=== PATIENT | female | born 1950 | race African-American/Black ===

== ENCOUNTER 2019-08-07 17:01 | Inpatient (IN) ==
[2019-08-07] MEDS ORDERED: NS 1,000 ML IV ONE (18:19)
[2019-08-07] MEDS ORDERED: ZOFRAN IV ONE (18:19)
[2019-08-07] MEDS ORDERED: FENTANYL IV ONE (18:19)
[2019-08-07] MEDS ORDERED: PEPCID IV ONE (18:20)
[2019-08-07] MEDS ORDERED: SODIUM CHLORIDE 0.9% INJ ONE (18:20)
--- NOTE | 2019-08-07 18:39 | PROVIDER DOCUMENTATION ---
This chart was entered by Christopher Cast Scribjose, acting as scribe for Varghese Altamirano MD. HPI-Abdominal Pain/GI Problem - General Source: patient, family <Robin Gonzalez - Last Filed: 08/07/19 21:51> - General Source: patient, family - History of Present Illness-ABD Nature of Presenting Problems: 69 yof presents to the ed with c/o abdominal pains, N/V. pt states 2 prior vists tp the ed this week Thursday and Thursday , then pt went to see pcp. family states " shes been diagnosed with viral infection each visits this week." family states pt having scans ( abdominal x-ray and CT) ,blood work and being flu tested. family states pt " not being able to keep down medications for liquids or food." pt states " abdominal pain comes and goes , but more often comes now." pt states " when i have body chills my abdominal pain is worse." pt states sore throat as well. pt states having abdominal pains for several mins in waiting room of the ed. family states pt having kidney stone removal in October and also a hip replacement. Abdominal Pain Onset Location: reports: RLQ Pain Radiation: reports: no radiation Quality of Pain: reports: aching Onset/Duration: reports: 1 week ago Timing: reports: still present Activities at Onset: reports: none Modifying Factors: improves with: other (pt states " body gets chills makes abdominal pains worse) Associated Symptoms: reports: fever/chills (chills stated by pt), loss of appetite, nausea, vomiting. denies: back/neck pain, chest pain, diarrhea, shortness of breath Last BM: 4 days ago Dark Stools Present?: reports: none noticed Rectal Bleeding: reports: none Rectal Pain: reports: none Emesis Description: reports: none Bruising or Bleeding Gums?: No Similar Symptoms Previously?: No Recently seen or treated by another doctor?: Yes (2 prior vists to the ed this week , and at pcp ) <Varghese Altamirano - Last Filed: 08/07/19 21:58> - General Chief Complaint: Abdominal Pain Stated Complaint: ABD PAIN,LEG PAIN Time Seen by Provider: 08/07/19 18:16 Allergies/Adverse Reactions: Patient Allergies Allergy/AdvReac Type Severity Reaction Status Date / Time tamsulosin [From Flomax] Allergy SHORTNESS Verified 08/07/19 18:57 OF BREATH tizanidine Allergy RASH Verified 08/07/19 18:57 Home Medications: Home Medication List Medication Instructions Recorded Confirmed Last Taken Type Levothyroxine [Synthroid] 75 microgm PO DAILY 09/12/14 08/07/19 08/07/19 History Gabapentin [Neurontin] 800 mg PO TID PRN 06/22/15 08/07/19 08/07/19 History Dicyclomine [Bentyl] 20 mg PO TID AC #15 cap 08/05/19 08/07/19 Unknown Rx Promethazine [Phenergan] 25 mg PO Q6H PRN PRN #20 tab 08/05/19 Unknown Rx ATORVAstatin [Lipitor] 1 tab PO DAILY 08/07/19 08/07/19 08/07/19 History Prednisolone 1 drp OPH TID 08/07/19 08/07/19 08/07/19 History Review of Systems - Adult - REVIEW OF SYSTEMS - ADULT Constitutional: reports: see HPI, chills. denies: fever, night sweats Eyes: reports: no symptoms reported Ears, Nose, Mouth & Throat: reports: see HPI, throat pain. denies: ear pain, nose pain, hoarseness Cardiovascular: reports: no symptoms reported Respiratory: denies: shortness of breath, wheezing Gastrointestinal: reports: see HPI, abdominal pain, nausea, vomiting. denies: constipation, diarrhea Genitourinary: reports: no symptoms reported Musculoskeletal: denies: back pain, neck pain Integumentary: reports: no symptoms reported Neurological: reports: no symptoms reported Psychiatric: reports: no symptoms reported Endocrine: reports: no symptoms reported Hematologic/Lymphatic: reports: no symptoms reported Allergic/Immunologic: reports: no symptoms reported All Other Systems: Reviewed and Negative <Varghese Altamirano - Last Filed: 08/07/19 21:58> Past History - Adult - PAST MEDICAL HISTORY-ADULT Review of Records: reports: Old Records Reviewed, Nursing Assessment Review, Medications Reviewed, Social history reviewed & non-contributory. Major Childhood Illnesses: reports: denies history Cardiovascular: reports: hyperlipidemia Respiratory: reports: denies history Gastrointestinal: reports: denies history Obstetrical/Gynecological: reports: denies history Genitourinary: reports: denies history Musculoskeletal: reports: other (neuropathy) Neurological: reports: denies history Psychiatric: reports: denies history Endocrine/Immune: reports: thyroid disorder. denies: Diabetes Other Conditions: reports: denies history Additional History: Peripheral Neuropathy - PRIOR SURGERIES/PROCEDURES Surgical/Procedure History: reports: other (thyroidectomy, kidney stone removal) - PRIOR HOSPITALIZATIONS Prior Hospitalizations: reports: none - IMMUNIZATION STATUS Childhood Immunizations: See Nurse Assessment Flu Vaccine: See Nurse Assessment - FAMILY HISTORY Family History: reviewed, not pertinent - SOCIAL HISTORY Smoking: cigarettes, less than 1 pack/day Provider spent 3-5 mins advising pt. on dangers of tobacco.: Discussed manners to quit use, and f/u contacts for add'l counseling. Substance Use: denies <Varghese Altamirano - Last Filed: 08/07/19 21:58> Physical Exam-General - PHYSICAL EXAM-ADULT Initial Vital Signs Reviewed: Yes - CONSTITUTIONAL General Appearance: appears well, alert, other (pt on exam is ill in appearance, moaning and dehydrated) - HEAD, EARS, NOSE, MOUTH & THROAT HENMT: normal ENT inspection, TMs normal. negative: moist mucous membranes - RESPIRATORY Respiratory: chest non-tender, lungs clear, normal breath sounds - CARDIOVASCULAR Cardiovascular: normal peripheral pulses, regular rate, rhythm - CHEST (BREASTS) Chest/Breast: deferred - GASTROINTESTINAL (ABDOMEN) Abdominal Exam: abnormal bowel sounds (on exam bowel sounds are hypoactive) - GENITOURINARY Female Genitalia/Pelvic Exam: deferred Rectal Exam: deferred Hemoccult Exam: deferred - MUSCULOSKELETAL Extremity: normal inspection, no pedal edema - SKIN Integumentary: negative: normal turgor - NEUROLOGIC Neurologic: grossly normal, no motor/sensory deficits - PSYCHIATRIC Psych/Mental Status: normal mood/affect, normal thought content, normal thought process, oriented x 3 <Varghese Altamirano - Last Filed: 08/07/19 21:58> Progress - PLAN OF CARE/RESULTS Progress/Plan/Lab Results: Vital Signs - 8 hr 08/07/19 17:13 08/07/19 19:03 08/07/19 19:04 Temperature 99.1 F Pulse Rate 65 56 L Respiratory Rate 18 16 Blood Pressure 149/75 165/83 O2 Sat by Pulse Oximetry 97 99 99 08/07/19 19:28 08/07/19 19:31 08/07/19 20:23 Temperature Pulse Rate 56 L 55 L 68 Respiratory Rate 18 18 19 Blood Pressure 169/76 172/80 O2 Sat by Pulse Oximetry 97 98 08/07/19 20:30 08/07/19 20:32 08/07/19 20:45 Temperature Pulse Rate 65 63 63 Respiratory Rate 16 16 17 Blood Pressure 146/72 O2 Sat by Pulse Oximetry 99 98 99 08/07/19 19:06 Influenza Screen - Final Nasopharyngeal 08/07/19 19:26 Group A Strep Rapid Antigen - Final Throat Laboratory Results - last 24 hr 08/07/19 08/07/19 08/07/19 18:43 18:43 18:43 WBC 7.39 RBC 4.00 L Hgb 12.4 Hct 36.5 L MCV 91.3 MCH 31.0 MCHC 34.0 RDW Std Deviation 11.4 L Plt Count 204 MPV 10.8 H Immature Gran % (Auto) 0.3 Neut % (Auto) 68.9 Lymph % (Auto) 20.2 L Howard % (Auto) 9.9 H Eos % (Auto) 0.4 Baso % (Auto) 0.3 Immature Gran # (Auto) 0.02 Neut # (Auto) 5.10 Lymph # (Auto) 1.49 Howard # (Auto) 0.73 H Eos # (Auto) 0.03 Baso # (Auto) 0.02 PT INR PTT (Actin FS) Sodium 144 Potassium 3.7 Chloride 107 Carbon Dioxide 21 L Anion Gap 16 BUN 14 Creatinine 0.8 Estimated GFR/1.73 m2 > 60 BUN/Creatinine Ratio 18 Glucose 112 H Calculated Osmolality 288 Calcium 9.8 Total Bilirubin 1.07 H AST 38 H ALT 23 Alkaline Phosphatase 88 Troponin T [id number]-Lkrgpdybvzt Pept Total Protein 8.1 Albumin 4.2 Globulin 3.9 Albumin/Globulin Ratio 1.1 Lipase 27 Plasma Lactate 1.2 08/07/19 08/07/19 08/07/19 18:43 18:43 18:43 WBC RBC Hgb Hct MCV MCH MCHC RDW Std Deviation Plt Count MPV Immature Gran % (Auto) Neut % (Auto) Lymph % (Auto) Howard % (Auto) Eos % (Auto) Baso % (Auto) Immature Gran # (Auto) Neut # (Auto) Lymph # (Auto) Howard # (Auto) Eos # (Auto) Baso # (Auto) PT 13.0 INR 0.97 PTT (Actin FS) 27.9 Sodium Potassium Chloride Carbon Dioxide Anion Gap BUN Creatinine Estimated GFR/1.73 m2 BUN/Creatinine Ratio Glucose Calculated Osmolality Calcium Total Bilirubin AST ALT Alkaline Phosphatase Troponin T < 0.010 Vls-B-Xeyyyblfoje Pept 225 Total Protein Albumin Globulin Albumin/Globulin Ratio Lipase Plasma Lactate Orders Category Date Time Status Nursing- Obtain EKG once Care 08/07/19 18:18 Active NPO Diet 08/07/19 17:19 Active CHEST-PORTABLE [RAD] Stat Exams 08/07/19 18:18 Completed CTA [CT ANGIOGRAM ABDOMEN] [CT] Stat Exams 08/07/19 18:23 Completed BLOOD CULTURE [BLDCUL] Stat Lab 08/07/19 18:43 Results CBC WITH DIFF [HEME] Stat Lab 08/07/19 18:43 Completed COMPREHENSIVE METABOLIC PANEL [CHEM] Stat Lab 08/07/19 18:43 Completed DIRECT STREP Stat Lab 08/07/19 19:26 Completed INFLUENZA SCREEN A/B Stat Lab 08/07/19 19:06 Completed LACTATE, PLASMA [CHEM] Stat Lab 08/07/19 18:43 Completed LIPASE [CHEM] Stat Lab 08/07/19 18:43 Completed OCCULT BLOOD SCREENING [STOOL] Stat Lab 08/07/19 18:17 Uncollected PRO B-NATRIURETIC PEPTIDE Stat Lab 08/07/19 18:43 Completed PROTIME WITH INR [COAG] Stat Lab 08/07/19 18:43 Completed PTT [COAG] Stat Lab 08/07/19 18:43 Completed TROPONIN T Stat Lab 08/07/19 18:43 Completed URINALYSIS [URINALYSIS] Stat Lab 08/07/19 17:19 Uncollected URINE DRUG SCREEN Stat Lab 08/07/19 18:21 Uncollected 0.9% Sodium Chloride Inj [Ns] 1,000 ml Med 08/07/19 18:19 Discontinued IV 999 mls/hr Famotidine [Pepcid] Med 08/07/19 18:20 Discontinued 20 mg IV NOW ONE Fentanyl Med 08/07/19 18:19 Discontinued 50 microgm IV NOW ONE Ondansetron [Zofran] Med 08/07/19 18:19 Discontinued 4 mg IV NOW ONE Sodium Chloride 0.9% Med 08/07/19 18:20 Discontinued 5 - 10 ml INJ NOW ONE Abd Pain/OB <20 weeks Stat Oth 08/07/19 17:19 Ordered EKG [EKG] Stat Ther 08/07/19 18:18 Draft Result Diagrams: 08/07/19 18:43 08/07/19 18:43 - CT/MRI 1 CT Study: Abdomen, Pelvis Impression: Abnormal, See EMR Report ([facility] - [address], [address], [place] [address] [facility] - [address] [place] [address] Department of Imaging Patient: ELAINE ROSS AADM Date: 08/07/19MR#: [id number] : 1950DM Status: PRE ERAcct#: [id number] Age/Sex: 69/FRoom/Bed: Loc: ED Ordering Physician: Varghese Altamirano MD Family Physician: Jus Rizo MD Reason for Procedure: mesenteric ischemia Signed EXAM: CT ANGIOGRAM ABDOMEN - 08/07/2019 HISTORY: mesenteric ischemia TECHNIQUE: CT angiogram abdomen with intravenous contrast. Axial, coronal and sagittal, and 3-D MIP images are obtained. COMPARISON: 04/18/2019 CT abdomen/pelvis FINDINGS: There is a mild atherosclerotic plaquing at the mid superior mesenteric artery. This produces short segment mild narrowing of the mid superior mesenteric artery. There is mild narrowing at the proximal celiac axis. The inferior mesenteric artery is patent. There is no evidence of abdominal aortic aneurysm. There there is a broad-based umbilical hernia which contains a small portion of transverse colon. There are no complicating features identified. There is mild retroperitoneal adenopathy similar to prior. The right kidney is mildly small relative to the left similar to prior. IMPRESSION: Short segment mild narrowing at mid superior mesenteric artery. Mild narrowing at proximal celiac axis. Electronically signed by Jus Rosales 08/07/2019 9:02 PM 08/07/192101 Interpreting Physician: Jus Rosales MD Dictated Date/Time: 08/07/192041 cc: Varghese Altamirano MD; Jus Rizo MD) - CONSULTS/PCP/HOSPITALIST Notification #1 *Consult/PCP/Hospitalist*: Dr Remy Time Discussed: 21:30 Reason/Comments: asked to consult Dr Pineda Consult Disposition: Will see in ED, Admit #2 Consult: Dr Pineda Time Discussed: 21:30 Reason/Comments: agreed to consult <Robin Gonzalez - Last Filed: 08/07/19 21:51> - PLAN OF CARE/RESULTS Progress/Plan/Lab Results: Vital Signs - 8 hr 08/07/19 17:13 Temperature 99.1 F Pulse Rate 65 Respiratory Rate 18 Blood Pressure 149/75 O2 Sat by Pulse Oximetry 97 Orders Category Date Time Status NPO Diet 08/07/19 17:19 Active CBC WITH DIFF [HEME] Stat Lab 08/07/19 17:19 Uncollected COMPREHENSIVE METABOLIC PANEL [CHEM] Stat Lab 08/07/19 17:19 Uncollected LIPASE [CHEM] Stat Lab 08/07/19 17:19 Uncollected URINALYSIS [URINALYSIS] Stat Lab 08/07/19 17:19 Uncollected Abd Pain/OB <20 weeks Stat Oth 08/07/19 17:19 Ordered Result Diagrams: 08/07/19 18:43 08/07/19 18:43 - EKG 1 Time of EKG reading by physician:: 21:00 EKG Read and Signed by:: Robin Gonzalez EKG Interpretation (*Must complete 3 of following elements*): Normal Rate: 57 Rhythm: sinus bradycardia [place]: normal QRS: normal MI Interval: normal ST Wave: normal - CHANGE OF SHIFT REPORT (ED Provider) 1 Report Given and Care Transferred to:: Barb Gonzalez Time of Transfer: 19:00 Items Pending: Labs, XRAY Results, CT/MRI Results, Pain Control <Varghese Altamirano - Last Filed: 08/07/19 21:58> Departure - Departure Time of Disposition Decision: 21:31 Certified Medical Emergency: Emergent - Critical Care Note This patient required my direct & personal management of CC.: No <Robin Gonzalez - Last Filed: 08/07/19 21:51> - Departure Date of Disposition Decision: 08/07/19 Certified Medical Emergency: Emergent <Varghese Altamirano - Last Filed: 08/07/19 21:58> - Departure DIAGNOSIS: Tobacco use, Nausea & vomiting, Abdominal pain of unknown etiology, Atherosclerosis of superior mesenteric artery Disposition: ADMITTED INPATIENT 09 Condition: Fair Referrals and Follow-Ups: Jus Rizo MD [Primary Care Provider] - Discharge Education: Steps to Quit Smoking, [id number] Attestation - Physician/ ALPESH Attestation Patient care was provided by Advanced Practice Provider:: No The physician spent face to face time with patient:: Yes Advanced Practice Provider documentation review:: Supervising physician onsite and consulted in the evaluation and care of this patient. The physician did have a face to face encounter with the patient. <Robin Gonzalez - Last Filed: 08/07/19 21:51> - Physician/ ALPESH Attestation Patient care was provided by Advanced Practice Provider:: No The physician spent face to face time with patient:: Yes Advanced Practice Provider documentation review:: Supervising physician onsite and consulted in the evaluation and care of this patient. The physician did have a face to face encounter with the patient. <Varghese Altamirano - Last Filed: 08/07/19 21:58> This chart was documented by the indicated scribe, (Christopher Cast, Kareem) and accurately reflects the services I performed and decisions made by Evelia shaikh Kent A., MD, as attested by the provider's signature.
--- NOTE | 2019-08-07 18:45 | Diag Imaging Result Doc PS360 ---
EXAM: CHEST-PORTABLE - 08/07/2019 HISTORY: abd pain TECHNIQUE: Portable chest COMPARISON: 08/03/2019 FINDINGS: Heart size is normal. There is mild tortuosity of the thoracic aorta similar to prior. The lungs appear clear. There is no pleural effusion or pneumothorax identified. IMPRESSION: No evidence of acute disease. Electronically signed by Jus Rosales 08/07/2019 6:43 PM
[2019-08-07 19:00] LABS: BASO# 0.02 X1000 (0.0-0.2); BASO% 0.3 % (0.0-0.8); EOS# 0.03 X1000 (0.0-0.7); EOS% 0.4 % (0.0-10.0); HEMATOCRIT 36.5 % (37.0-47.0); HEMOGLOBIN 12.4 g/dL (12.0-16.0); IMM GRAN# 0.02 X1000 (0.0-0.04); IMM GRAN% 0.3 % (0.0-0.5); LYMPH# 1.49 X1000 (1.2-3.4); LYMPH% 20.2 % (20.5-51.1); MCV 91.3 FL (81-99); MONO# 0.73 X1000 (0.11-0.59); MONO% 9.9 % (1.7-9.3); MPV 10.8 FL (7.4-10.4); NEUT% 68.9 % (42.2-75.2); PLT 204 X1000 (130-400); RDW 11.4 % (11.5-14.5); WBC 7.39 X1000 (4.8-10.8)
[2019-08-07 19:07] LABS: INR 0.97
[2019-08-07 19:09] LABS: PTT 27.9 Seconds (22.3-41.8)
[2019-08-07 19:45] LABS: AGAP 16; ALB/GLOB RATIO 1.1; ALBUMIN 4.2 g/dL (3.5-5.0); ALKALINE PHOSPHATASE 88 U/L (32-104); BUN 14 mg/dL (8-22); CALCIUM 9.8 mg/dL (8.8-10.2); CHLORIDE 107 mmol/L (98-107); COSMO 288; CREATININE 0.8 mg/dL (0.5-0.9); ESTIMATED GFR > 60; GLUCOSE 112 mg/dL (70-104); GOT 38 U/L (10-30); GPT 23 U/L (10-36); LIPASE 27 U/L (13-60); POTASSIUM 3.7 mmol/L (3.5-5.1); SODIUM 144 mmol/L (136-145); TCO2 21 mmol/L (25-35); TOTAL BILIRUBIN 1.07 mg/dL (0.20-1.00); TOTAL PROTEIN 8.1 g/dL (6.3-8.3)
--- NOTE | 2019-08-07 21:02 | EKG Report ---
Test Performed on : 08/07/2019 9:00:53 PM Test Reason : abdominal pain Blood Pressure : / mmHG Vent. Rate : 057 BPM Atrial Rate : 057 BPM P-R Int : 140 ms QRS Dur : 064 ms QT Int : 442 ms P-R-T Axes : 015 006 009 degrees QTc Int : 430 ms Sinus bradycardia. Otherwise normal ECG When compared with ECG of 21-MAR-2016 23:48, Vent. rate has decreased BY 31 BPM Borderline criteria for Inferior infarct are no longer present Unconfirmed Result
--- NOTE | 2019-08-07 21:04 | Diag Imaging Result Doc PS360 ---
EXAM: CT ANGIOGRAM ABDOMEN - 08/07/2019 HISTORY: mesenteric ischemia TECHNIQUE: CT angiogram abdomen with intravenous contrast. Axial, coronal and sagittal, and 3-D MIP images are obtained. COMPARISON: 04/18/2019 CT abdomen/pelvis FINDINGS: There is a mild atherosclerotic plaquing at the mid superior mesenteric artery. This produces short segment mild narrowing of the mid superior mesenteric artery. There is mild narrowing at the proximal celiac axis. The inferior mesenteric artery is patent. There is no evidence of abdominal aortic aneurysm. There there is a broad-based umbilical hernia which contains a small portion of transverse colon. There are no complicating features identified. There is mild retroperitoneal adenopathy similar to prior. The right kidney is mildly small relative to the left similar to prior. IMPRESSION: Short segment mild narrowing at mid superior mesenteric artery. Mild narrowing at proximal celiac axis. Electronically signed by Jus Rosales 08/07/2019 9:02 PM
[2019-08-07] MEDS ORDERED: DILAUDID IV ONE (21:40)
[2019-08-08 00:18] LABS: URINE SOURCE CATH
[2019-08-08 00:31] LABS: UR AMPHETAMINES QUAL NONE DETECTED (NONE DETECT); UR BARBITUATES QUAL NONE DETECTED (NONE DETECT); UR BENZODIAZEPIN QUAL NONE DETECTED (NONE DETECT); UR CANNABINOIDS QUAL NONE DETECTED (NONE DETECT); UR COCAINE QUAL NONE DETECTED (NONE DETECT); UR METHADONE QUAL NONE DETECTED (NONE DETECT); UR OPIATES QUAL NONE DETECTED (NONE DETECT); UR OXYCODONE QUAL NONE DETECTED (NONE DETECT); UR PCP QUAL NONE DETECTED (NONE DETECT)
[2019-08-08 01:05] LABS: BILIRUBIN URINE NEGATIVE (NEGATIVE); BLOOD URINE NEGATIVE (NEGATIVE); COLOR YELLOW; GLUCOSE URINE NEGATIVE (NEGATIVE); KETONE URINE 20 mg/dL (NEGATIVE); LEUKOCYTES URINE NEGATIVE (NEGATIVE); NITRITE URINE NEGATIVE (NEGATIVE); PH URINE 6.5; PROTEIN URINE TRACE mg/dL (NEGATIVE); TURBIDITY URINE CLEAR (CLEAR); UROBILINOGEN URINE NORMAL (NORMAL)
[2019-08-08 01:07] LABS: UR EPITHELIAL CELLS <10 /HPF (<10); URINE BACTERIA NEGATIVE /HPF; URINE RBC <10 /HPF (<10); URINE WBC <10 /HPF (<10)
[2019-08-08 01:38] LABS: URINE CASTS NONE SEEN; URINE CRYSTALS NONE SEEN; URINE SMALL ROUND CELLS NONE SEEN; URINE YEAST PRESENT
[2019-08-08 01:39] LABS: SP GRAVITY URINE 1.005
[2019-08-08] MEDS ORDERED: NEURONTIN PO PRN (01:45)
--- NOTE | 2019-08-08 03:06 | HISTORY AND PHYSICAL ---
PRIMARY CARE PHYSICIAN: Dr. Jus Rizo. CHIEF COMPLAINT: Abdominal pain x1 week. HISTORY OF PRESENTING ILLNESS: A 69-year-old female with a history of peripheral neuropathy, hypothyroidism, hyperlipidemia, who presented to the emergency department with 1-week history of having abdominal pain, nausea, vomiting. Patient states it was cramping and sometimes was sharp. She was evaluated in the emergency department. She had abdominal angiogram which did show narrowing at the mid superior mesenteric artery. Her case was discussed with General Surgery who recommended admission for further evaluation and management. At the time of my examination, patient denied any headache, fever, chills, chest pain, shortness of breath, hemoptysis, melena or weight changes, but complained of abdominal pain. PAST MEDICAL HISTORY: Include peripheral neuropathy, hypothyroidism, hyperlipidemia. PAST SURGICAL HISTORY: Thyroidectomy, right hip surgery, cataract surgery. ALLERGIES: Tamsulosin, tizanidine. CURRENT MEDICATIONS: Atorvastatin 40 mg p.o. daily, gabapentin 800 mg p.o. t.i.d., levothyroxine 75 mcg p.o. daily, prednisolone 1 drop ophthalmic t.i.d. SOCIAL HISTORY: 20+ pack year history of smoking. She denies any history of alcohol or illicit drug use. FAMILY HISTORY: No history of coronary artery disease. REVIEW OF SYSTEMS: Fourteen point review of system as listed in HPI. Other systems negative. PHYSICAL EXAMINATION: GENERAL: Cooperative, friendly female. She is resting more comfortably now. VITAL SIGNS: Temperature 99.1 degrees, pulse 65, respiration 18, blood pressure 149/75. HEENT: Atraumatic, normocephalic. Extraocular movements intact. PERRLA. NECK: No masses. CHEST: Clear to auscultation. CARDIOVASCULAR: Regular rate and rhythm. ABDOMEN: Soft. Diffuse tenderness. EXTREMITIES: No edema. NEUROLOGIC: She is awake, alert, oriented x3. GENITOURINARY: No bladder distention. SKIN: Warm. LABORATORIES AND STUDIES: WBC 7.39, hemoglobin 12.4, hematocrit 36.5, platelets 204,000. Sodium 144, potassium 3.7, chloride 107, CO2 is 21, BUN is 14, creatinine 0.8, glucose is 112. Troponin 0.010. Abdominal arteriogram shows short segment mid narrowing at the mid superior mesenteric artery and mild narrowing at the proximal celiac axis. ASSESSMENT: A 69-year-old female with a history of peripheral neuropathy, hypothyroidism, hyperlipidemia, who had presented to the emergency department with 1-week history of having persistent abdominal pain. She was evaluated in the emergency department. She had an abnormal CT case. Her case was discussed with General Surgery who recommended admission for further management. 1. Abdominal pain. 2. Abnormal CT showing narrowing at the mid superior mesenteric artery. 3. Hyperlipidemia. 4. Hypothyroidism. PLAN: 1. We will admit patient to medical floor with telemetry. 2. We will keep patient NPO. 3. Continue with IV fluids, antiemetics, pain control. 4. Consult General Surgery. 5. We will hold home medications for now. 6. We will put patient on DVT prophylaxis with SCDs. 7. We will continue to follow, and reassess and make further recommendation based on patient's clinical course. cc: Donnell Remy MD
[2019-08-08] MEDS: NS 1,000 ML IV SCH ×2 (03:10→14:16)
[2019-08-08] MEDS: ZOFRAN IV PRN ×2 (03:18→22:36)
[2019-08-08] MEDS: MORPHINE IV PRN ×4 (04:10→23:24)
[2019-08-08] MEDS ORDERED: SODIUM CHLORIDE 0.9% INJ ONE (06:29)
[2019-08-08] MEDS ORDERED: PHENERGAN IV ONE (06:29)
[2019-08-08] MEDS: SYNTHROID PO SCH (06:54)
--- NOTE | 2019-08-08 07:39 | GENERAL SURGERY CONSULTATION ---
DATE: 08/08/2019 REQUESTING PHYSICIAN: The hospitalist. REASON FOR CONSULTATION: Consult concerning possible celiac and SMA disease. HISTORY OF PRESENT ILLNESS: This is a 69-year-old, -Serbian female with a history of peripheral neuropathy, hypothyroidism, and hyperlipidemia, who presented to the department emergency department with a 1-week history of abdominal pain, nausea, and vomiting. She reports cramping and sometimes sharp pain. She does not really describe food fear or any mesenteric ischemia. 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 There is an umbilical hernia but no real acute intra-abdominal process appreciated on the preliminary read. Given these findings with the arterial disease, I was asked to weigh an opinion. She is still complaining of some nausea, vomiting, and abdominal pain. PAST MEDICAL HISTORY: Includes: 1. Peripheral neuropathy. 2. Hypothyroidism. 3. Hyperlipidemia. PAST SURGICAL HISTORY: Includes thyroidectomy, right hip surgery, cataract surgery. ALLERGIES: Reviewed. CURRENT MEDICATIONS: Reviewed and home medications reviewed. SOCIAL HISTORY: Positive for smoking. FAMILY HISTORY: No history of coronary artery disease. REVIEW OF SYSTEMS: Full 14 systems reviewed and negative except as specified in the HPI. PHYSICAL EXAMINATION: Vital Signs: The patient is currently afebrile. Her vital signs are stable. General Examination: No acute distress. Cooperative, -Serbian female who looks stated age. HEENT: Normocephalic, atraumatic. Pupils equal, round, reactive to light. Mucous membranes moist. Oropharynx benign. Neck: Supple. Trachea midline. Cardiovascular: Regular rate and rhythm. Lungs: Grossly clear. Abdomen: Some tenderness diffusely but no peritoneal signs. Extremities: Moves all extremities. Neurologic: Grossly intact. Skin: No signs of jaundice. Vascular: All extremities perfused. LABORATORY DATA: White blood cell count 7, hematocrit is 36. Remainder of labs reviewed. Of note, her lactate is 1.2. CT scan independently reviewed and radiology report reviewed and noted above. 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 Abdominal pain. At this time, we will show the images to Dr. Whitaker. The narrowing is not a lot. It is only mild but this still could be contributing potentially to her pain. The other option would be considering an esophagogastroduodenoscopy and colonoscopy in the near future but we will show these images to Dr. Whitaker and make further recommendations. I appreciate the consult. cc: Matthew Pineda MD
[2019-08-08] MEDS: LIPITOR PO SCH ×2 (08:52→10:46)
--- NOTE | 2019-08-08 19:53 | PROGRESS NOTE ---
DATE: 08/08/2019 INTERVAL HISTORY: Ms. Shaw was admitted for chief complaints of nausea, vomiting, and abdominal pain of 1 week duration. Apparently, she had flu-like illness to begin with, including fevers, chills, soreness in the throat, muscle ache about 1 week ago, and with that she started developing nausea, vomiting, and generalized abdominal pain. She had been in to emergency room and primary care providers, but the CAT scan was largely unremarkable, so she was discharged home. 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 SUBJECTIVE: Ms. Shaw currently feels she is feeling better and is hungry. She still has some nausea and she had vomiting earlier in the morning time. She has been passing gas. She also had prior history of a nephrolithiasis on the right side, which supposedly underwent lithotripsy. Her family is at bedside. She denies chest pain, shortness of breath. She denies palpitation. She denies noticing any colt blood in the stool. I discussed with her about constipation, nonemergent endoscopy, changing opioid medication from intravenous to oral, and starting her on diet. VITAL SIGNS: Currently, temperature 98.1 degrees, pulse 50, respiratory rate 16, blood pressure 170/80. She is saturating 99% on room air. PHYSICAL EXAMINATION: General: Not in any acute distress. Oral cavity: Moist. Oral cavity has pigmentation of chronic tobacco smoking, and I counseled her about quitting smoking. Lungs: Air entry bilaterally equal. No wheeze, rhonchi, crackles. Cardiovascular: S1, S2 normal. No murmur or gallop. Abdomen: Soft. Mild tenderness. Active bowel sounds. Extremities: No lower extremity edema. Neurologic: She is alert and oriented x3. LABS: Largely unremarkable. ASSESSMENT AND PLAN: 1. Nausea, vomiting, and abdominal pain. Currently, she is feeling symptomatically better. On review of the CAT scan, she does have some stool impaction in the right side of the colon, and I will start her on full liquid diet, intravenous antiemetic, and stool softeners, including MiraLAX and bisacodyl suppositories. I will also give her dicyclomine as needed for abdominal pain. 2. History of right-sided nephrolithiasis. On review of her CAT scan image, she does appear to have a likely intrarenal stone on image 70 of horizontal section and image 32 of coronal section. However, it could also be interlobular artery branch. However, it appears too small to cause any symptoms, and she has not had any hematuria. I will just continue to monitor her. 3. Others. Continue atorvastatin for hyperlipidemia; gabapentin for peripheral neuropathy affecting lower extremities; levothyroxine for hypothyroidism. DISPOSITION: I will see how patient does on a liquid diet. The patient was supposed to get colonoscopy outpatient by Dr. Lynch. Depending on her course, she may need inpatient endoscopy; however, I explained to her that mostly we only perform emergency endoscopies inpatient and this could potentially be deferred outpatient, according to her course. Plan of care discussed with patient and her family at bedside. Her questions have been satisfactorily answered. cc: Narendra Alcantar MD
[2019-08-08] MEDS: DULCOLAX PR SCH (22:26)
[2019-08-08] MEDS: MIRALAX PO SCH (22:26)
[2019-08-09] MEDS: NS 1,000 ML IV SCH (00:49)
[2019-08-09] MEDS: DULCOLAX PR SCH ×3 (03:33→21:37)
[2019-08-09] MEDS: MIRALAX PO SCH ×2 (03:33→10:06)
[2019-08-09] MEDS ORDERED: MORPHINE IV PRN ×2 (06:00→23:04)
[2019-08-09] MEDS: BENTYL PO SCH ×2 (06:16→06:22)
[2019-08-09] MEDS: SYNTHROID PO SCH ×2 (06:16→06:22)
[2019-08-09 06:57] LABS: BASO# 0.03 X1000 (0.0-0.2); BASO% 0.5 % (0.0-0.8); EOS% 1.6 % (0.0-10.0); HEMATOCRIT 33.1 % (37.0-47.0); HEMOGLOBIN 11.1 g/dL (12.0-16.0); IMM GRAN# 0.02 X1000 (0.0-0.04); IMM GRAN% 0.3 % (0.0-0.5); LYMPH# 1.46 X1000 (1.2-3.4); LYMPH% 22.9 % (20.5-51.1); MCH 31.3 PG (27-31); MCHC 33.5 g/dL (33-37); MCV 93.2 FL (81-99); MONO# 0.63 X1000 (0.11-0.59); MONO% 9.9 % (1.7-9.3); MPV 11.1 FL (7.4-10.4); NEUT# 4.14 X1000 (1.4-6.5); NEUT% 64.8 % (42.2-75.2); PLT 177 X1000 (130-400); RBC 3.55 XMIL (4.2-5.4); RDW 11.7 % (11.5-14.5); WBC 6.38 X1000 (4.8-10.8)
[2019-08-09] MEDS: ZOFRAN IV PRN ×2 (07:18→19:32)
[2019-08-09 07:21] LABS: AGAP 13; BUN 12 mg/dL (8-22); CALCIUM 8.7 mg/dL (8.8-10.2); CHLORIDE 111 mmol/L (98-107); COSMO 288; CREATININE 0.8 mg/dL (0.5-0.9); ESTIMATED GFR > 60; GLUCOSE 92 mg/dL (70-104); POTASSIUM 3.5 mmol/L (3.5-5.1); SODIUM 145 mmol/L (136-145); TCO2 21 mmol/L (25-35)
[2019-08-09] MEDS: MORPHINE IV PRN ×3 (08:53→21:36)
[2019-08-09] MEDS: LIPITOR PO SCH (10:06)
[2019-08-09] MEDS ORDERED: NS 1,000 ML IV SCH (10:30)
[2019-08-09] MEDS: SODIUM CHLORIDE 0.9% INJ SCH (11:17)
[2019-08-09] MEDS: PROTONIX IV SCH (11:17)
[2019-08-09] MEDS: CLINIMIX E 4.25%-5% SOLUTION 1,000 ML IV SCH ×2 (11:21→21:37)
--- NOTE | 2019-08-09 12:49 | Diag Imaging Result Doc PS360 ---
EXAM: ABDOMEN FLAT/UPRIGHT 08/09/2019 HISTORY: constipation/abdominal pain TECHNIQUE: AP portable flat and upright at 1146 COMMENT: There is colonic and small bowel gas in a nonspecific pattern without evidence of obstruction. There is no evidence of organomegaly or mass in the stomach is not distended. There are numerous phleboliths in the pelvis. There has been previous internal fixation of the right femur. IMPRESSION: Nonspecific abdomen. Electronically signed by Manny Rios 08/09/2019 12:46 PM
--- NOTE | 2019-08-09 12:53 | GENERAL SURGERY PROGRESS NOTE ---
DATE: 08/09/2019 SUBJECTIVE: Patient seems to be doing about the same. OBJECTIVE: Vital Signs: Patient is currently afebrile. Her vital signs are stable. General: No acute distress. HEENT: Normocephalic, atraumatic. Pupils equal, round, reactive to light. Mucous membranes moist. Oropharynx benign. Neck: Supple. Trachea midline. Cardiovascular: Regular rate and rhythm. Lungs: Grossly clear. Abdomen: Soft, nondistended. Extremities: Moves all extremities. Neurologic: Grossly intact. Skin: No signs of jaundice. Vascular: All extremities perfused. LABORATORY: None this morning as of yet. ASSESSMENT AND PLAN: A 69-year-old female with abdominal pain: Abdominal pain. At this time reviewed CT scan and CTA with Dr. Whitaker, likely not enough stenosis to merit surgical intervention at this time. I recommend she probably has an outpatient EGD and colonoscopy. We will continue to follow while she is in the hospital but no immediate plans for surgical intervention. cc: Matthew Pineda MD
--- NOTE | 2019-08-09 21:04 | PROGRESS NOTE ---
DATE: 08/09/2019 SUBJECTIVE: The patient has not been able to keep solids or liquids down. She vomited her pills back up this morning. OBJECTIVE: Vital Signs: Temperature 99 degrees, blood pressure 143/72, heart rate 59, respirations 16, blood pressure 143/72, O2 saturation is 100% on room air. General: This is a chronically ill-appearing, elderly female, lying in bed in no acute distress. Heart: S1, S2 normal. Bradycardic. Lungs: Clear to auscultation bilaterally. Abdomen: Positive bowel sounds. Soft, nondistended, nontender. Extremities: No edema. No cyanosis. Neurologic: The patient is lethargic, but will awaken when her name is called. LABORATORY AND DIAGNOSTIC DATA: White blood cell count 6.3, hemoglobin 11, hematocrit 33, platelets 177,000. Sodium 145, potassium 3.5, chloride 111, CO2 of 21, BUN 12, creatinine 0.8, glucose 92. Abdominal x-ray, nonspecific. ASSESSMENT AND PLAN: 1. Nausea and vomiting with abdominal pain. The abdominal x-ray is unremarkable. The patient has been seen by the general surgeon and there is nothing amenable to surgical intervention. We will consult with GI. In the meantime, we will start the patient on Clinimix and IV Protonix. 2. Hypothyroidism. We will switch the patient to IV Synthroid since she is unable to keep her medications down. 3. Right nephrolithiasis. Aware. This stone appears to be quite small. 4. Deep vein thrombosis prophylaxis. Continue with sequential compression devices. cc: Shey Goodrich MD MTDD
[2019-08-10] MEDS ORDERED: SODIUM CHLORIDE 0.9% INJ PRN (06:00)
--- NOTE | 2019-08-10 06:07 | GASTROENTEROLOGY CONSULTATION ---
DATE: 08/09/2019 REASON FOR CONSULTATION: Nausea, vomiting, abdominal pain. HISTORY OF PRESENT ILLNESS: This is a 69-year-old female. She was admitted to the hospital with continued abdominal pain, nausea, vomiting and not able to keep anything down. Family is at the bedside and states that have brought her in to the emergency room every day this last week with no improvement in her symptoms. She was admitted to the hospital for further evaluation. 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 Patient has been evaluated by [facility], they are currently following. There is no immediate plans for surgical intervention. It did not seem that the stenosis was enough to merit her abdominal pain and no reported surgical intervention was recommended at this time. Patient had actually had a colonoscopy scheduled for yesterday by Dr. Lynch as an outpatient and, of course, it was canceled due to her hospitalization. Patient has reported some fever off and on. Symptoms have been going on for over a week and, as noted, she has been in to the emergency room multiple times. She has denied diarrhea, denied hematemesis. No reported bleeding or bright red blood per rectum. She did have some issues with constipation and was given MiraLAX and docusate to take when she got home, but she has continued back in to the emergency room and then in to the hospital, so she really did not get those laxatives started. Currently, patient is not able to keep anything down. She is only tolerating ice chips at this moment. At the time of my evaluation, she did have an emesis basin at the bedside with some clear secretions noted in the foss. PAST MEDICAL HISTORY: Peripheral neuropathy, hypothyroidism, hyperlipidemia. PAST SURGICAL HISTORY: Thyroidectomy, right hip surgery, cataract surgery. ALLERGIES TO: Flomax, causing shortness of breath, tizanidine causing a rash. HOME MEDICATIONS: 1. Lipitor 1 tablet daily. 2. Bentyl 20 mg 3 times a day. 3. Neurontin 800 mg 3 times a day as needed. 4. Synthroid 75 mcg daily. 5. Prednisone 1 drop ophthalmic 3 times a day. 6. Phenergan 25 mg every 6 hours as needed. SOCIAL HISTORY: History of tobacco use. No reported alcohol use. REVIEW OF SYSTEMS: Per history of present illness. PHYSICAL EXAMINATION: Vital Signs: Temperature 99.4 degrees, pulse 59, respirations 16, blood pressure 143/72. General: Patient is awake and alert. She is complaining of abdominal pain, nausea and vomiting. HEENT: Normocephalic, atraumatic. Pupils equal, round, reactive to light. Sclerae nonicteric. Respiratory: Lung sounds essentially clear. Cardiovascular: Regular rate and rhythm. Abdomen: Soft, but tender diffusely. Otherwise, positive bowel sounds. Extremities: No lower extremity edema noted. Neurologic: Cranial nerves 2-12 grossly intact. Patient is awake and alert. LABORATORY: Hematology: WBC 6.38, hemoglobin 11.1, hematocrit 33.1, MCV 93.2, platelet 177,000. Coagulation: Pro-time 13.0, INR 0.97, PTT 27.9. Chemistry: Sodium 145, potassium 3.5, chloride 111, CO2 of 21, BUN 12, creatinine 0.8. Glucose 92, calcium 8.7, total bilirubin 1.07, AST 38, ALT 23, alkaline phosphatase 88. C-reactive protein 4.84. Lipase 27. ASSESSMENT AND PLAN: 1. Nausea and vomiting. Patient is currently only tolerating ice chips at this time. 2. Abdominal pain. 3. History of constipation. I believe she has been given laxatives. 4. 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 5. History of colon polyps. Patient was actually scheduled for her surveillance colonoscopy yesterday but it had to be canceled because of her hospitalization. Because of her current issues with nausea, vomiting and abdominal pain, we will proceed with an EGD as an inpatient 1st. The patient would not be able to tolerate the colon prep at this time. Further plans will be made according to the EGD findings. I have discussed the plan with the patient along with family. I have discussed this case with Dr. Lynch. We will plan for EGD on Thursday. Further plans to be made according to findings. Recommend to continue her PPI. Thank you for this consultation. Dictated by NICHOLE Martin for Jean-Claude Lynch MD cc: NICHOLE Temple MD
[2019-08-10] MEDS: MORPHINE IV PRN ×2 (06:15→14:09)
[2019-08-10] MEDS: ZOFRAN IV PRN ×2 (06:16→11:03)
[2019-08-10] MEDS: SYNTHROID IV SCH (06:51)
[2019-08-10] MEDS: CLINIMIX E 4.25%-5% SOLUTION 1,000 ML IV SCH ×3 (06:51→16:48)
[2019-08-10 07:03] LABS: HEMATOCRIT 32.7 % (37.0-47.0); MCHC 33.6 g/dL (33-37); MCV 92.1 FL (81-99); MPV 11.1 FL (7.4-10.4); RBC 3.55 XMIL (4.2-5.4); RDW 11.3 % (11.5-14.5); WBC 6.35 X1000 (4.8-10.8)
[2019-08-10 07:44] LABS: AGAP 11; BUN 20 mg/dL (8-22); CALCIUM 8.8 mg/dL (8.8-10.2); CHLORIDE 108 mmol/L (98-107); COSMO 290; CREATININE 0.7 mg/dL (0.5-0.9); ESTIMATED GFR > 60; GLUCOSE 137 mg/dL (70-104); POTASSIUM 3.3 mmol/L (3.5-5.1); SODIUM 143 mmol/L (136-145); TCO2 24 mmol/L (25-35)
[2019-08-10 08:08] LABS: PHOSPHORUS 3.2 mg/dL (2.7-4.5)
[2019-08-10] MEDS: PROTONIX IV SCH ×3 (08:30→14:10)
[2019-08-10] MEDS: DULCOLAX PR SCH ×2 (08:30→20:56)
[2019-08-10] MEDS: SODIUM CHLORIDE 0.9% INJ SCH (08:30)
[2019-08-10] MEDS ORDERED: BLISTEX MEDICATED BERRY LIP BALM TOP PRN (08:41)
[2019-08-10] MEDS: POTASSIUM CHLORIDE 20 MEQ/SWI 20 MEQ/100 ML IVPB IV SCH ×2 (10:51→17:06)
[2019-08-10] MEDS: MYCOSTATIN SUSP PO SCH ×4 (11:01→20:56)
[2019-08-10] MEDS ORDERED: PNEUMOVAX 23 IM ONE (11:12)
[2019-08-10] MEDS: DIFLUCAN 100 MG/NS 100 MG/50 ML IVPB IV SCH (12:05)
--- NOTE | 2019-08-10 12:19 | GENERAL SURGERY PROGRESS NOTE ---
DATE: 08/10/2019 SUBJECTIVE: Patient seems to be doing okay. She is still having some discomfort. She is scheduled to have EGD today. OBJECTIVE: Vital Signs: Patient is currently afebrile. Her vital signs are stable. General Examination: No acute distress. Cardiovascular: Regular rate and rhythm. Lungs: Grossly clear. Abdomen: Soft, nondistended. Extremities: Moves all extremities. Neurologic: Grossly intact. Skin: No signs of jaundice. Vascular: All extremities perfused. Laboratory: Reviewed from yesterday. ASSESSMENT AND PLAN: A 69-year-old female with abdominal pain. Abdominal pain. At this time, we will continue supportive care. Agree with the esophagogastroduodenoscopy today. We will see what that shows. Otherwise, we will continue to follow. cc: Matthew Pineda MD
[2019-08-10] MEDS ORDERED: DIPRIVAN 1% ONE (15:33)
--- NOTE | 2019-08-10 15:50 | ENDOSCOPY OPERATIVE NOTE ---
[facility] ENDOSCOPY OPERATIVE NOTE , EGD PROCEDURE REPORT PATIENT: Maile Shaw ADMISSION DATE: 08/10/2019 MR#: [id number] : 1950 PROCEDURE DATE: 08/10/2019 SURGEON: Jean-Claude Lynch MD STATUS: inpatient OPTICAL GLASS ETCHER: Doris Manjarrez and Lopez Owusu PREOPERATIVE DIAGNOSIS: The patient is a 69 yr old female here for an EGD due to epigastric abdomina l pain, nausea, and vomiting. PROCEDURE PERFORMED: EGD, diagnostic MEDICATIONS: Per Anesthesia TOPICAL ANESTHETIC: none CONSENT: The patient understands the risks and benefits of the procedure and understands that these r isks include, but are not limited to: sedation, allergic reaction, infection, perforation and/or bleeding. Alternative means of evaluation and treatment include, among others: physical exam, x-rays, and/or surgical intervention. The patient elects to proceed with this endoscopic procedure. HISORY AND PHYSICAL: 08/10/2019 DESCRIPTION OF PROCEDURE: During intra-op preparation period all mechanical and medical equipment was checked for proper function. Hand hygiene and appropriate measures for infection prevention was taken. After the risks, benefits and alternatives of the procedure were thoroughly explained, Informed consent was verified, confirmed and timeout was successfully executed by the treatment team. The patient was anesthetized with topical anesthesia and the Pentax [id number] endoscope was introduced through the mouth and advanced to the second portion of the duodenu m. Retroflexion was performed in the stomach and revealed no abnormalities. The gastroscope was then slowly withdraw n and removed. ESOPHAGUS: The mucosa of the esophagus appeared normal. STOMACH: The mucosa of the stomach appeared normal. DUODENUM: Mild duodenal inflammation was found in the duodenal bulb and 2nd part duodenum. SPECIMENS REMOVED: No ADVERSE EVENTS: There were no complications. POSTOPERATIVE DIAGNOSIS: 1. The mucosa of the esophagus appeared normal 2. The mucosa of the stomach appeared normal 3. Duodenal inflammation was found in the duodenal bulb and 2nd part duodenum RECOMMENDATIONS: 1. Resume previous diet 2. Resume current medications 3. Transfer to floor REPEAT EXAM: Jean-Claude Lynch MD eSigned: Jean-Claude Lynch MD 08/10/2019 4:49 PM cc: Jus Rizo MD PATIENT NAME: Maile Shaw MR#: [id number]
--- NOTE | 2019-08-10 20:31 | PROGRESS NOTE ---
DATE: 08/10/2019 SUBJECTIVE: The patient complained of persistent nausea. OBJECTIVE: Vital Signs: Temperature 99 degrees, blood pressure 152/89, heart rate 72, respirations 18, O2 saturations 98% on room air. General: This is a chronically ill-appearing elderly female lying in bed in no acute distress. Heart: S1, S2 normal. Regular rate and rhythm. Lungs: Clear to auscultation bilaterally. Abdomen: Positive bowel sounds. Soft, nontender, nondistended. Extremities: No edema. No cyanosis. Neurologic: The patient is alert and oriented x3. LABORATORY DATA: Sodium 143, potassium 3.3, chloride 108, CO2 24, BUN 20, creatinine 0.7, glucose 137. ASSESSMENT AND PLAN: 1. Persistent nausea and vomiting with abdominal pain. The patient had an EGD earlier today that revealed mild duodenal inflammation but otherwise was unremarkable. We will continue to monitor the patient closely. GI is following. 2. Hypothyroidism. Continue on Synthroid. 3. Right nephrolithiasis. Aware. 4. Thrush. We will start the patient on Diflucan. 5. Hypertension. We will start the patient on Norvasc. 6. Deep vein thrombosis prophylaxis. We will start the patient on Lovenox. 7. We will consult physical therapy. cc: Shey Goodrich MD
[2019-08-10] MEDS: LOVENOX SUBQ SCH (20:55)
[2019-08-10] MEDS: NORVASC PO SCH (20:56)
[2019-08-11] MEDS: ZOFRAN IV PRN ×3 (01:21→20:36)
[2019-08-11] MEDS: MORPHINE IV PRN ×2 (05:35→13:10)
[2019-08-11] MEDS: CLINIMIX E 4.25%-5% SOLUTION 1,000 ML IV SCH ×4 (06:19→22:36)
[2019-08-11] MEDS: SYNTHROID IV SCH (06:22)
[2019-08-11 06:37] LABS: HEMATOCRIT 36.3 % (37.0-47.0); HEMOGLOBIN 12.1 g/dL (12.0-16.0); MCH 30.8 PG (27-31); MCHC 33.3 g/dL (33-37); MCV 92.4 FL (81-99); MPV 11.4 FL (7.4-10.4); RBC 3.93 XMIL (4.2-5.4); RDW 11.6 % (11.5-14.5); WBC 7.74 X1000 (4.8-10.8)
[2019-08-11 06:56] LABS: AGAP 13; BUN 20 mg/dL (8-22); CALCIUM 9.5 mg/dL (8.8-10.2); CHLORIDE 101 mmol/L (98-107); COSMO 277; CREATININE 0.9 mg/dL (0.5-0.9); ESTIMATED GFR > 60; GLUCOSE 140 mg/dL (70-104); MAGNESIUM 1.9 mg/dL (1.5-2.7); POTASSIUM 3.7 mmol/L (3.5-5.1); SODIUM 136 mmol/L (136-145); TCO2 22 mmol/L (25-35)
[2019-08-11] MEDS: OFIRMEV 1000 MG/ISOTONIC SOLN 1,000 MG/100 ML BOTTLE IV PRN ×2 (08:38→16:11)
[2019-08-11] MEDS: SODIUM CHLORIDE 0.9% INJ SCH (08:43)
[2019-08-11] MEDS: PROTONIX IV SCH ×2 (08:43→11:16)
[2019-08-11] MEDS: MYCOSTATIN SUSP PO SCH ×4 (08:44→20:19)
[2019-08-11] MEDS: NORVASC PO SCH ×2 (08:44→20:19)
[2019-08-11] MEDS: DULCOLAX PR SCH ×2 (08:45→20:19)
[2019-08-11] MEDS: DIFLUCAN 100 MG/NS 100 MG/50 ML IVPB IV SCH (11:15)
--- NOTE | 2019-08-11 11:53 | GENERAL SURGERY PROGRESS NOTE ---
DATE: 08/11/2019 SUBJECTIVE: The patient apparently has had a rough night. I reviewed EGD which showed some duodenal inflammation at the bulb and the second portion of the duodenum. OBJECTIVE: Vital Signs: The patient's current temperature is 100 degrees. Remainder of vital signs appear stable. General Examination: Appears uncomfortable. -[place] female, looks stated age. HEENT: Normocephalic, atraumatic. Pupils equal, round, react to light. Mucous membranes moist. Oropharynx benign. Neck: Supple. Trachea midline. Cardiovascular: Regular rate and rhythm. Lungs: Grossly clear. Abdomen: Some discomfort but no peritoneal signs. Extremities: Moves all extremities. Neurologic: Grossly intact. Skin: No signs of jaundice. Vascular: All extremities perfused. Laboratory: None this morning as of yet. ASSESSMENT AND PLAN: A 69-year-old female with abdominal pain. Abdominal pain. At this time, it could be related to duodenitis. Defer to gastroenterology if the patient needs to be on antibiotics versus just a proton pump inhibitor. We will continue to follow while she is in the hospital. cc: Matthew Pineda MD
--- NOTE | 2019-08-11 12:39 | Diag Imaging Result Doc PS360 ---
EXAM: CHEST-1 VIEW HISTORY: fever TECHNIQUE: Single view COMPARISON: 08/07/2019 FINDINGS: The lungs are well expanded. The heart is not enlarged. The vessels are not distended. There are no infiltrates. No effusion identified. IMPRESSION: No pneumonia Electronically signed by Benjamín Lawson 08/11/2019 12:37 PM
[2019-08-11] MEDS: FLAGYL 500 MG/NS 500 MG/100 ML IVPB IV SCH ×2 (12:59→17:50)
[2019-08-11] MEDS: REGLAN IV SCH ×2 (12:59→16:10)
--- NOTE | 2019-08-11 14:13 | PROGRESS NOTE ---
DATE: 08/11/2019 SUBJECTIVE: The patient continues to complain of abdominal pain and persistent nausea with vomiting whenever she tries to eat anything or drink anything. She did have a fever of 101 this morning. OBJECTIVE: Vital Signs: T-max 101 degrees, blood pressure 131/70, heart rate 84, respirations 18, O2 saturation 95% on room air. Intake 3 L, output 1.8 L. General: This is a chronically ill- appearing, elderly female, sitting up in bed in no acute distress. Heart: S1, S2 normal. Regular rate and rhythm. Lungs: Clear to auscultation bilaterally. Abdomen: Positive bowel sounds. Soft, nontender. Extremities: No edema, no cyanosis. Neurologic: The patient is alert and oriented x3. LABORATORY DATA: White blood cell count 7.7, hemoglobin 12, hematocrit 36, platelets 143,000. Sodium 136, potassium 3.7, chloride 101, CO2 of 22, BUN 20, creatinine 0.9, glucose 140. Magnesium 1.9, phosphorus 3.5. ASSESSMENT AND PLAN: 1. Abdominal pain with persistent nausea and occasional emesis. An attempt was made to do a gastric emptying study this morning. However, the patient could not tolerate the study due to persistent nausea and vomiting. The esophagogastroduodenoscopy yesterday revealed duodenitis, but otherwise was unremarkable. Will start the patient on a trial of Reglan, and monitor closely. Gastroenterology is following. 2. Fever. Blood cultures and a urinalysis have been obtained. Will also repeat a chest x-ray. Will place the patient on Flagyl empirically pending the results of the cultures. 3. Hypothyroidism. Continue on Synthroid. 4. Right nephrolithiasis. Aware. 5. Thrush. The patient is on Diflucan and nystatin swish and swallow. 6. Hypertension. Controlled. 7. Deep vein thrombosis prophylaxis. Continue on Lovenox. 8. Continue with physical therapy. The plan of care was discussed with the patient and her family this morning at the bedside. cc: Shey Goodrich MD MTDD
[2019-08-11] MEDS: CARAFATE LIQUID PO SCH (20:19)
[2019-08-11] MEDS: LOVENOX SUBQ SCH (20:19)
--- NOTE | 2019-08-11 23:35 | GASTROENTEROLOGY PROGRESS NOTE ---
DATE: 08/11/2019 SUBJECTIVE: Patient was seen earlier this morning. At that time, she was still complaining of some nausea and episodes of vomiting. She is only able to eat small amounts. She had an EGD done on 08/10/2019. Findings did not show any evidence of esophagitis or abnormalities in the stomach. She had mild duodenal inflammation in the duodenal bulb and 2nd portion of the duodenum. There was an attempted gastric emptying study done today. I believe the study was unable to be completed because of patient's nausea and vomiting. OBJECTIVE: Vital signs: Temperature 98.9 degrees, pulse 67, blood pressure 109/57. Generally the patient was awake and alert. She had family at the bedside. LABORATORY: Hematology: WBC 7.74, hemoglobin 12.1, hematocrit 36.3, MCV 92.4, platelets 143,000. Chemistry: Sodium 136, potassium 3.7, chloride 101, CO2 of 22, BUN 20, creatinine 0.9, glucose 140, calcium 9.5, phosphorus 3.5, magnesium 1.9. Total bilirubin 1.07, AST 38, ALT 23, alkaline phosphatase 88. ASSESSMENT AND PLAN: 1. Nausea, vomiting. 2. Abdominal pain. 3. Esophagogastroduodenoscopy showing only mild duodenal inflammation. 4. Fever. The patient has had blood cultures and urinalysis, started on antibiotics. 5. Thrush. She is on Diflucan and nystatin. 6. Other medical problems: Hypothyroidism, right nephrolithiasis, hypertension. PLAN: Continue current medication. Continue PPI. Will add Carafate. The patient has also been started on Reglan. Further plans will be made according to her progress. I have discussed this case with Dr. Lynch. Dictated by NICHOLE Martin for Jean-Claude Lynch MD cc: NICHOLE eTmple MD
[2019-08-12] MEDS: FLAGYL 500 MG/NS 500 MG/100 ML IVPB IV SCH ×3 (00:01→13:12)
[2019-08-12] MEDS: OFIRMEV 1000 MG/ISOTONIC SOLN 1,000 MG/100 ML BOTTLE IV PRN (00:02)
[2019-08-12] MEDS: CARAFATE LIQUID PO SCH ×4 (02:55→21:05)
[2019-08-12] MEDS: SYNTHROID IV SCH ×2 (05:43→06:54)
[2019-08-12] MEDS: REGLAN IV SCH ×4 (05:44→15:55)
[2019-08-12 06:46] LABS: BASO# 0.02 X1000 (0.0-0.2); BASO% 0.3 % (0.0-0.8); EOS# 0.16 X1000 (0.0-0.7); EOS% 2.1 % (0.0-10.0); HEMATOCRIT 33.4 % (37.0-47.0); HEMOGLOBIN 11.3 g/dL (12.0-16.0); IMM GRAN# 0.03 X1000 (0.0-0.04); IMM GRAN% 0.4 % (0.0-0.5); LYMPH# 1.33 X1000 (1.2-3.4); LYMPH% 17.6 % (20.5-51.1); MCH 31.3 PG (27-31); MCHC 33.8 g/dL (33-37); MCV 92.5 FL (81-99); MONO# 0.74 X1000 (0.11-0.59); MONO% 9.8 % (1.7-9.3); MPV 11.9 FL (7.4-10.4); NEUT# 5.29 X1000 (1.4-6.5); NEUT% 69.8 % (42.2-75.2); PLT 139 X1000 (130-400); RBC 3.61 XMIL (4.2-5.4); RDW 11.6 % (11.5-14.5); WBC 7.57 X1000 (4.8-10.8)
[2019-08-12 07:09] LABS: AGAP 12; BUN 23 mg/dL (8-22); CALCIUM 9.1 mg/dL (8.8-10.2); CHLORIDE 103 mmol/L (98-107); COSMO 280; CREATININE 0.9 mg/dL (0.5-0.9); ESTIMATED GFR > 60; GLUCOSE 140 mg/dL (70-104); POTASSIUM 3.6 mmol/L (3.5-5.1); SODIUM 137 mmol/L (136-145); TCO2 22 mmol/L (25-35)
[2019-08-12] MEDS: CLINIMIX E 4.25%-5% SOLUTION 1,000 ML IV SCH ×2 (07:55→19:40)
[2019-08-12] MEDS: MORPHINE IV PRN ×3 (07:56→21:04)
[2019-08-12] MEDS: ZOFRAN IV PRN ×3 (07:57→22:03)
[2019-08-12] MEDS: NORVASC PO SCH ×2 (08:00→21:06)
[2019-08-12] MEDS: MYCOSTATIN SUSP PO SCH ×4 (08:00→21:05)
[2019-08-12] MEDS: DULCOLAX PR SCH ×2 (08:01→21:06)
--- NOTE | 2019-08-12 10:21 | Diag Imaging Result Doc PS360 ---
EXAM: BA SWALLOW W/VIDEO SPEECH THER 08/12/2019 HISTORY: dysphagia TECHNIQUE: 277 images, 137 mGy, 28 seconds fluoroscopy time. COMMENT: There is no evidence of reflux or cricopharyngeal achalasia. There are tertiary contractions in the distal esophagus. IMPRESSION: Mild presbyesophagus. Electronically signed by Manny Rios 08/12/2019 10:19 AM
[2019-08-12 10:30] LABS: URINE SOURCE CATH
[2019-08-12] MEDS: PROTONIX IV SCH (10:30)
[2019-08-12] MEDS: SODIUM CHLORIDE 0.9% INJ SCH (10:30)
[2019-08-12 10:36] LABS: BILIRUBIN URINE NEGATIVE (NEGATIVE); BLOOD URINE NEGATIVE (NEGATIVE); COLOR YELLOW; GLUCOSE URINE NEGATIVE (NEGATIVE); KETONE URINE NEGATIVE (NEGATIVE); LEUKOCYTES URINE NEGATIVE (NEGATIVE); NITRITE URINE NEGATIVE (NEGATIVE); PH URINE 6.5; PROTEIN URINE NEGATIVE (NEGATIVE); SP GRAVITY URINE 1.014; TURBIDITY URINE CLEAR (CLEAR); UROBILINOGEN URINE NORMAL (NORMAL)
[2019-08-12 10:37] LABS: UR EPITHELIAL CELLS <10 /HPF (<10); URINE BACTERIA 2+ /HPF; URINE RBC <10 /HPF (<10); URINE WBC <10 /HPF (<10)
--- NOTE | 2019-08-12 14:31 | Diag Imaging Result Doc PS360 ---
EXAM: CT THORAX W/O CONTRAST 08/12/2019 HISTORY: recurrent fever/dyspnea TECHNIQUE: This exam was performed using automated exposure control, adjustment of mA or kV according to patient size, and/or use of iterative reconstruction technique. COMMENT: There is COPD. There is atelectasis versus pneumonia in both posterior lower lobes. There may be a small amount of pleural fluid particularly on the right. There is a soft tissue density nodule adjacent to the inframammary fold in the subcutaneous fat over the right anterior chest measuring 10 mm of uncertain significance. There is no evidence of significant axillary mediastinal or hilar adenopathy. IMPRESSION: Bibasilar atelectasis versus pneumonia. COPD. Small pleural effusions. Electronically signed by Manny Rios 08/12/2019 2:28 PM
--- NOTE | 2019-08-12 14:35 | Diag Imaging Result Doc PS360 ---
EXAM: CT ABD/PELVIS W/ORAL CONT ONLY 08/12/2019 HISTORY: abdominal pain/dysphagia TECHNIQUE: This exam was performed using automated exposure control, adjustment of mA or kV according to patient size, and/or use of iterative reconstruction technique. COMMENT: Opacification in the posterior costophrenic sulci bilaterally is worse than on 08/07/2019. There is a 3 mm calculus in the upper pole of the left kidney and a 3 to 4 mm calculus in the lower pole on the right. The stomach is not distended. The small bowel is not distended. There is some gas in the colon which does not appear to demonstrate mucosal thickening where it is distended. There are no apparent gallstones. The liver spleen adrenal glands and pancreas are grossly normal in appearance. The aorta is not distended. There are some prominent periaortic nodes particularly on the left side below the level of the renal pedicle. This has not changed since 08/07/2019. Pelvis: There are some prominent ileocolic nodes which were also present on the previous study. The appendix is distended or inflamed in appearance. There is free fluid in the cul-de-sac. There is fluid in the rectum. The urinary bladder is not distended and there is a Jeffers catheter. Some beam hardening artifact is present due to the internal fixation hardware in the right femur. There are some spondylotic changes in the lumbar spine. IMPRESSION: Right pleural effusion and bibasilar atelectasis versus pneumonia worse on the right than the left. Bilateral nephrolithiasis without evidence of hydronephrosis. Otherwise stable since 08/07/2019. Electronically signed by Manny Rios 08/12/2019 2:33 PM
[2019-08-12] MEDS ORDERED: VANCOMYCIN IV PER PHARMACY MISC SCH (14:45)
[2019-08-12] MEDS: DIFLUCAN 100 MG/NS 100 MG/50 ML IVPB IV SCH (15:24)
[2019-08-12] MEDS: MAXIPIME 2 GM/NS 2 GM/100 ML IVPB IV SCH (15:55)
[2019-08-12] MEDS ORDERED: VANCOMYCIN 1,650 MG in NS 250 ML IV ONE (16:00)
[2019-08-12] MEDS ORDERED: MAXIPIME 2 GM in NS 100 ML IV SCH (16:00)
--- NOTE | 2019-08-12 16:07 | GENERAL SURGERY PROGRESS NOTE ---
DATE: 08/12/2019 SUBJECTIVE: Patient seems to be doing okay. She was transferred down from the floor to the [facility]. She did spike a fever last night, but she is feeling a little bit better today. OBJECTIVE: Vital Signs: Patient's current temperature of 98.6 degrees. Patient's T-max 101.2 degrees. Remainder of vitals have been okay. General exam: No acute distress, resting. female looks stated age. HEENT: Normocephalic, atraumatic. Pupils equal, round, reactive to light. Mucous membranes moist. Oropharynx benign. Neck: Supple. Trachea midline. Cardiovascular: Regular rate and rhythm. Lungs: Grossly clear. Abdomen: Soft. Less tender from previous days. Extremities: Moves all extremities. Neurologic: Grossly intact. Skin: No signs of jaundice. Vascular: All extremities perfused. LABORATORY: Pending from this morning. ASSESSMENT AND PLAN: A 61-year-old female with abdominal pain. 1. Abdominal pain at this time could be related to duodenitis. We will continue to follow. At this point, no immediate plans for surgical intervention. We will continue to monitor while she is in the hospital. cc: Matthew Pineda MD
[2019-08-12] MEDS: LOVENOX SUBQ SCH (21:06)
--- NOTE | 2019-08-12 21:30 | PROGRESS NOTE ---
DATE: 08/12/2019 SUBJECTIVE: The patient is starting to feel a little bit better. She was able to drink some liquid without vomiting. She does complain of abdominal pain. OBJECTIVE: Vital Signs: Temperature 99.2 degrees, blood pressure 112/69, heart rate 85, respirations 19, O2 saturation 95% on room air. Intake 1.9 L. Output 1.8 L. General: This is an elderly female lying in bed in no acute distress. Heart: S1, S2 normal. Regular rate and rhythm. Lungs: Equal air entry bilaterally. Diminished breath sounds at the bases. Abdomen: Positive bowel sounds. Soft, nontender, nondistended. Extremities: No edema. No cyanosis. Neurologic: The patient is alert and oriented x3. LABORATORY STUDIES: White blood cell count 7.5, hemoglobin 11, hematocrit 33, platelets 139,000. Sodium 137, potassium 3.6, BUN 23, creatinine 0.9, glucose 140. IMAGING STUDIES: Chest CT reveals bibasilar atelectasis versus pneumonia. COPD. Small pleural effusions. CT of the abdomen and pelvis reveals a right pleural effusion and basilar bibasilar atelectasis versus pneumonia, worse on the right than left. Bilateral nephrolithiasis. ASSESSMENT AND PLAN: 1. Bilateral pneumonia. We will start the patient on cefepime and vancomycin. Will also add incentive spirometry. 2. Abdominal pain with nausea and vomiting. Slightly improved. Continue with Reglan before each meal. 3. Hypothyroidism. Continue on Synthroid. 4. Thrush. Continue on Diflucan. 5. Gastrointestinal prophylaxis. Continue on Protonix. 6. Deep vein thrombosis prophylaxis. Continue on Lovenox. 7. Continue with physical therapy. cc: Shey Goodrich MD [facility]
[2019-08-12 23:11] LABS: URINE SOURCE CATH
[2019-08-12 23:18] LABS: BILIRUBIN URINE NEGATIVE (NEGATIVE); BLOOD URINE NEGATIVE (NEGATIVE); COLOR YELLOW; GLUCOSE URINE NEGATIVE (NEGATIVE); KETONE URINE NEGATIVE (NEGATIVE); LEUKOCYTES URINE TRACE (NEGATIVE); NITRITE URINE NEGATIVE (NEGATIVE); PH URINE 6.5; PROTEIN URINE TRACE mg/dL (NEGATIVE); SP GRAVITY URINE 1.014; TURBIDITY URINE CLEAR (CLEAR); UR EPITHELIAL CELLS <10 /HPF (<10); URINE BACTERIA NEGATIVE /HPF; URINE RBC <10 /HPF (<10); URINE WBC <10 /HPF (<10); UROBILINOGEN URINE NORMAL (NORMAL)
[2019-08-13] MEDS: MAXIPIME 2 GM/NS 2 GM/100 ML IVPB IV SCH ×4 (00:06→23:45)
[2019-08-13] MEDS: MORPHINE IV PRN ×3 (01:26→20:50)
[2019-08-13] MEDS: CARAFATE LIQUID PO SCH ×5 (01:26→22:01)
[2019-08-13] MEDS: NORVASC PO SCH ×3 (01:27→22:01)
[2019-08-13] MEDS: ZOFRAN IV PRN ×2 (05:18→20:43)
[2019-08-13] MEDS: CLINIMIX E 4.25%-5% SOLUTION 1,000 ML IV SCH ×2 (05:20→20:42)
--- NOTE | 2019-08-13 05:21 | GASTROENTEROLOGY PROGRESS NOTE ---
DATE: 08/12/2019 SUBJECTIVE: Patient is awake and alert. She has family at the bedside. She states she may feel a little better today, but she is still not really able to eat anything. She has had a barium swallow this morning that showed no evidence of reflux or cricopharyngeal achalasia. She had tertiary contractions in the distal esophagus showing mild presbyesophagus. She does have a CT scan of the thorax and CT scan of the abdomen and pelvis scheduled for today. OBJECTIVE: Vital Signs: Temperature 99.4 degrees, pulse 79, respirations 20, blood pressure 126/81. General: Patient is awake and alert, in no acute distress. LABORATORY: Hematology: WBC 7.57, hemoglobin 11.3, hematocrit 33.4, MCV 92.5, platelet 139. Chemistry: Sodium 137, potassium 3.6, chloride 103, CO2 of 22. BUN 23, creatinine 0.9, glucose 140. Urinalysis was normal. ASSESSMENT AND PLAN: 1. Abdominal pain. 2. Nausea and vomiting. The patient had an esophagogastroduodenoscopy that was normal, except for mild duodenitis. Patient has been given a trial of Reglan. Continue her proton pump inhibitor. Depending on her computed tomography scan results, we may consider changing Reglan to meclizine. Will continue to follow patient and further plans will be made according to her progress. We will follow up on computed tomography scan results and further plans will be made as needed. I have discussed this case with Dr. Lynch. Dictated by NICHOLE Martin for Jean-Claude Lynch MD cc: NICHOLE Temple MD
[2019-08-13] MEDS: REGLAN IV SCH (06:35)
[2019-08-13] MEDS: SYNTHROID IV SCH (06:35)
[2019-08-13 06:56] LABS: BASO# 0.01 X1000 (0.0-0.2); BASO% 0.1 % (0.0-0.8); EOS# 0.11 X1000 (0.0-0.7); EOS% 1.5 % (0.0-10.0); HEMATOCRIT 32.2 % (37.0-47.0); HEMOGLOBIN 10.7 g/dL (12.0-16.0); IMM GRAN# 0.04 X1000 (0.0-0.04); IMM GRAN% 0.5 % (0.0-0.5); LYMPH# 1.21 X1000 (1.2-3.4); LYMPH% 16.3 % (20.5-51.1); MCHC 33.2 g/dL (33-37); MCV 93.3 FL (81-99); MONO# 0.86 X1000 (0.11-0.59); MONO% 11.6 % (1.7-9.3); MPV 11.7 FL (7.4-10.4); NEUT# 5.21 X1000 (1.4-6.5); PLT 140 X1000 (130-400); RBC 3.45 XMIL (4.2-5.4); RDW 11.5 % (11.5-14.5); WBC 7.44 X1000 (4.8-10.8)
[2019-08-13 07:22] LABS: AGAP 13; BUN 21 mg/dL (8-22); CALCIUM 8.5 mg/dL (8.8-10.2); CHLORIDE 102 mmol/L (98-107); COSMO 275; CREATININE 0.9 mg/dL (0.5-0.9); ESTIMATED GFR > 60; GLUCOSE 140 mg/dL (70-104); SODIUM 135 mmol/L (136-145); TCO2 20 mmol/L (25-35)
[2019-08-13] MEDS: MYCOSTATIN SUSP PO SCH ×4 (09:00→22:01)
[2019-08-13] MEDS: DULCOLAX PR SCH ×3 (09:00→22:02)
[2019-08-13] MEDS ORDERED: ZOFRAN IV ONE (09:41)
[2019-08-13] MEDS: PROTONIX IV SCH (10:51)
[2019-08-13] MEDS: DIFLUCAN 100 MG/NS 100 MG/50 ML IVPB IV SCH (10:51)
[2019-08-13] MEDS: ANTIVERT PO SCH ×2 (13:39→17:38)
--- NOTE | 2019-08-13 13:40 | Diag Imaging Result Doc PS360 ---
EXAM: CT HEAD W/WO CONTRAST 08/13/2019 HISTORY: nausea/vomiting, rule out central cause TECHNIQUE: This exam was performed using automated exposure control, adjustment of mA or kV according to patient size, and/or use of iterative reconstruction technique. COMMENT: There is some cortical encephalomalacia present in the left parietal convexity. This was also present at the time the previous study of 03/22/2016. There is no evidence of mass effect, bleed, or abnormal extra-axial fluid collection. There is persistence of the cava and septum pellucidum. There is no evidence of abnormal contrast enhancement. The calvarium is intact. The paranasal sinuses are clear. IMPRESSION: Chronic ischemic changes. No evidence of acute disease. Electronically signed by Manny Rios 08/13/2019 1:38 PM
[2019-08-13] MEDS: VANCOMYCIN 1.2 GM in NS 250 ML IV SCH (17:05)
[2019-08-13] MEDS: LOVENOX SUBQ SCH (22:01)
[2019-08-13] MEDS: PRED FORTE 1% OPH SUSPENSION BOTH EYES SCH (23:45)
--- NOTE | 2019-08-14 00:23 | GASTROENTEROLOGY PROGRESS NOTE ---
DATE: 08/13/2019 SUBJECTIVE: Patient has still not been able to eat, she has had multiple work ups. She has had orders by hospitalist to place an NG 2 feeding today. She had a CT scan of the abdomen and pelvis and also a CT scan of the chest yesterday. CT scan of the abdomen and pelvis showed a right pleural effusion and bibasilar atelectasis versus pneumonia, bilateral nephrolithiasis without evidence of hydronephrosis. CT scan of the chest showed bibasilar atelectasis versus pneumonia, COPD and small pleural effusions. She had modified barium swallow that showed mild presbyesophagus with no evidence of achalasia. OBJECTIVE: Vital Signs: Temperature 100 degrees, pulse 70, respirations 17, blood pressure 107/60. General: Patient is awake and alert. She does complain of some nausea if she tries to eat or take her medications, she has gagging and vomiting. She has been on Reglan for several days with no improvement in her symptoms. LABORATORY: Hematology: WBC 7.44, hemoglobin 10.7, hematocrit 32.2, MCV 93.3. Chemistry: Sodium 135, potassium 4.0, chloride 102, CO2 of 20, BUN 21, creatinine 0.9. Glucose 140. ASSESSMENT AND PLAN: Continued nausea and vomiting, unable to eat. Patient has orders to place an NG-tube feeding today. We will stop her Reglan and try meclizine 25 mg 3 times a day. Also, recommend CT scan of the head to rule out central cause of her symptoms. Further plans to be made according to her progress and findings. I have discussed this case with Dr. Lynch. Dictated by NICHOLE Martin for Jean-Claude Lynch MD cc: NICHOLE Temple MD
[2019-08-14] MEDS: CARAFATE LIQUID PO SCH ×4 (02:17→20:43)
--- NOTE | 2019-08-14 04:39 | GENERAL SURGERY PROGRESS NOTE ---
DATE: 08/13/2019 SUBJECTIVE: The patient is feeling better. She says her abdominal pain is less. No vomiting. She is hungry. OBJECTIVE: Vital signs: T-max 100 degrees. Current temperature 99.3 degrees. The rest of her vital signs are stable. General: She is awake, alert, oriented x3. No acute distress. Gastrointestinal: Soft, nondistended. Minimally tender. She does have bowel sounds. ASSESSMENT/PLAN: A 69-year-old female with abdominal pain of unclear etiology, possible duodenitis. She has a soft diet ordered. We will see how she tolerates that. No acute surgical indications today. cc: Sonny Richardson MD
[2019-08-14] MEDS: SYNTHROID IV SCH (06:10)
[2019-08-14] MEDS: CLINIMIX E 4.25%-5% SOLUTION 1,000 ML IV SCH (06:11)
[2019-08-14 06:28] LABS: BASO# 0.02 X1000 (0.0-0.2); BASO% 0.3 % (0.0-0.8); EOS# 0.22 X1000 (0.0-0.7); EOS% 3.1 % (0.0-10.0); HEMATOCRIT 31.9 % (37.0-47.0); HEMOGLOBIN 10.5 g/dL (12.0-16.0); IMM GRAN# 0.05 X1000 (0.0-0.04); IMM GRAN% 0.7 % (0.0-0.5); LYMPH# 1.45 X1000 (1.2-3.4); LYMPH% 20.4 % (20.5-51.1); MCH 30.8 PG (27-31); MCHC 32.9 g/dL (33-37); MCV 93.5 FL (81-99); MONO# 0.93 X1000 (0.11-0.59); MONO% 13.1 % (1.7-9.3); MPV 11.6 FL (7.4-10.4); NEUT# 4.45 X1000 (1.4-6.5); NEUT% 62.4 % (42.2-75.2); PLT 166 X1000 (130-400); RBC 3.41 XMIL (4.2-5.4); RDW 11.5 % (11.5-14.5); WBC 7.12 X1000 (4.8-10.8)
[2019-08-14 07:12] LABS: PHOSPHORUS 3.4 mg/dL (2.7-4.5)
[2019-08-14 07:14] LABS: AGAP 12; ALKALINE PHOSPHATASE 56 U/L (32-104); BUN 22 mg/dL (8-22); CALCIUM 8.7 mg/dL (8.8-10.2); CHLORIDE 102 mmol/L (98-107); COSMO 277; CREATININE 0.8 mg/dL (0.5-0.9); ESTIMATED GFR > 60; GLUCOSE 123 mg/dL (70-104); GOT 13 U/L (10-30); GPT 7 U/L (10-36); POTASSIUM 4.2 mmol/L (3.5-5.1); SODIUM 136 mmol/L (136-145); TCO2 22 mmol/L (25-35); TOTAL BILIRUBIN 0.51 mg/dL (0.20-1.00)
--- NOTE | 2019-08-14 07:25 | Diag Imaging Result Doc PS360 ---
EXAM: CHEST-PORTABLE 08/14/2019 HISTORY: pneumonia TECHNIQUE: AP portable upright at 0541 COMMENT: The inspiration is not as well-expanded as on 08/11/2019. Considering this there has been no appreciable change. IMPRESSION: Poor inspiration. Electronically signed by Manny Rios 08/14/2019 7:23 AM
[2019-08-14] MEDS ORDERED: CLINIMIX E 4.25%-5% SOLUTION 1,000 ML IV SCH (08:12)
[2019-08-14] MEDS: ANTIVERT PO SCH ×3 (08:42→18:34)
[2019-08-14] MEDS: MAXIPIME 2 GM/NS 2 GM/100 ML IVPB IV SCH ×2 (08:42→16:50)
[2019-08-14] MEDS: MYCOSTATIN SUSP PO SCH ×4 (08:42→20:43)
[2019-08-14] MEDS: NORVASC PO SCH ×2 (08:43→20:44)
[2019-08-14] MEDS: DULCOLAX PR SCH ×2 (08:44→20:44)
[2019-08-14] MEDS: PRED FORTE 1% OPH SUSPENSION BOTH EYES SCH ×3 (08:45→20:43)
[2019-08-14] MEDS: PROTONIX IV SCH (11:51)
[2019-08-14] MEDS: DIFLUCAN 100 MG/NS 100 MG/50 ML IVPB IV SCH (11:51)
[2019-08-14] MEDS: SODIUM CHLORIDE 0.9% INJ SCH (11:52)
--- NOTE | 2019-08-14 15:11 | GENERAL SURGERY PROGRESS NOTE ---
DATE: 08/14/2019 SUBJECTIVE: The patient is feeling much better. No significant pain. She is eating well. No vomiting. OBJECTIVE: She is afebrile. Vital signs are stable. General: She is awake, alert, and oriented x3. No acute distress. Gastrointestinal: Soft, nontender, nondistended. Laboratory: CBC and basic metabolic profile reviewed and unremarkable. She does have greater than 100,000 enterococcus in her urine. ASSESSMENT AND PLAN: A 69-year-old female with abdominal pain which is much improved. She has evidence of duodenitis and a urinary tract infection. There are no acute surgical indications. cc: Sonny Richardson MD
--- NOTE | 2019-08-14 17:38 | GASTROENTEROLOGY PROGRESS NOTE ---
DATE: 08/14/2019 SUBJECTIVE: Ms. Adhikari was sitting up in the bed having her lunch. She was brought in lunch from outside. Yesterday, she had a very good day. She had eaten most of her food including some spaghetti. She has not had any episodes of nausea or vomiting till just now. She has felt a wave of nausea after she smelled something in the room. Otherwise, she has been able to tolerate food and keep things down. PHYSICAL EXAMINATION: Vital signs: Temperature 98.6 degrees, pulse 72 per minute, breathing 20, blood pressure 125/79. Abdomen: Is full, soft, nontender. Bowel sounds are audible. Extremities: No pedal edema noted. LABORATORIES: Reviewed. Her hemoglobin is 10.5, hematocrit 31.9 and transaminases are normal. IMPRESSION: 1. Persistent nausea, vomiting. Etiology at this point not known. So far workup has been negative including her esophagogastroduodenoscopy except for mild duodenitis. She is currently on meclizine and has responded. I would continue the same. No new changes. 2. Abdominal pain has resolved. No new suggestions. Considering her positive progress, not much to add. She can be discharged on meclizine 25 mg p.o. t.i.d. and I would follow her up at the office and in the meantime call us with any questions. cc: Jean-Claude Lynch MD
[2019-08-14] MEDS: VANCOMYCIN 1.2 GM in NS 250 ML IV SCH (18:33)
[2019-08-14] MEDS: LOVENOX SUBQ SCH (20:44)
[2019-08-14] MEDS: MORPHINE IV PRN (23:38)
[2019-08-14] MEDS: ZOFRAN IV PRN (23:45)
[2019-08-15] MEDS: MAXIPIME 2 GM/NS 2 GM/100 ML IVPB IV SCH ×3 (01:47→16:21)
[2019-08-15] MEDS: CARAFATE LIQUID PO SCH ×4 (02:47→21:26)
--- NOTE | 2019-08-15 04:04 | PROGRESS NOTE ---
DATE: 08/13/2019 SUBJECTIVE: The patient refused to take her medications this morning. She states that she feels nauseated. OBJECTIVE: Vital Signs: T-max 100 degrees, blood pressure 127/67, heart rate 71, respirations 18, O2 saturation is 97% on room air. Intake is 800, output 2 L. General: This is a chronically ill-appearing elderly female lying in bed in no acute distress. Heart: S1, S2 normal. Regular rate and rhythm. Lungs: Equal air entry bilaterally. No wheezing. No rales. Abdomen: Positive bowel sounds. Soft, nontender, nondistended. Extremities: No edema. No cyanosis. Neurologic: The patient is alert and oriented x3. LABORATORY DATA: White blood cell count is 7.4, hemoglobin 10, hematocrit 32, platelets 140,000. Sodium 135, potassium 4, chloride 102, CO2 is 20, BUN 21, creatinine 0.9, glucose 140. ASSESSMENT AND PLAN: 1. Bilateral lobe pneumonia. Continue with antibiotics and bronchodilator therapy. 2. Nausea with abdominal pain. The patient was able to drink the oral contrast to have the CT done yesterday, and she was able to eat lunch according to the patient's daughter yesterday; however, this morning she is refusing to take anything by mouth because she states that she is nauseated. We will continue with Reglan. Further recommendations to follow from GI. 3. Thrush. Continue on Diflucan. 4. Hypothyroidism. Continue on Synthroid. 5. Gastrointestinal prophylaxis. Continue on IV Protonix. 6. Deep vein thrombosis prophylaxis. Continue on Lovenox. 7. Continue with physical therapy. cc: Shey Goodrich MD
--- NOTE | 2019-08-15 04:57 | PROGRESS NOTE ---
DATE: 08/14/2019 SUBJECTIVE: The patient is eating well. She was able to eat her lunch and dinner yesterday. She states that her stomach pain has improved. OBJECTIVE: Vital Signs: Temperature 97.5 degrees, blood pressure 116/73, heart rate 84, respirations 16, O2 saturation 99% on room air. General: This is an elderly female lying in bed in no acute distress. Heart: S1, S2 normal. Regular rate and rhythm. Lungs: Clear to auscultation bilaterally. Abdomen: Positive bowel sounds. Soft, nontender, nondistended. Extremities: No edema, no cyanosis. Neurologic: The patient is alert and oriented x3. LABS: White blood cell count 7.1, hemoglobin 10, hematocrit 31, platelets 166,000. Sodium 136, potassium 4.2, chloride 102, CO2 22, BUN 22, creatinine 0.8, glucose 123. ASSESSMENT AND PLAN: 1. Nausea, vomiting, and abdominal pain. This appears to have improved. The patient was able to eat her lunch and dinner yesterday and even today. She reports that she feels much better. We will continue with the current treatment regimen. 2. Pneumonia. The x-ray done yesterday shows poor inspiration but is essentially unchanged. We will continue with antibiotics and bronchodilator therapy. 3. Hypothyroidism. Continue on Synthroid. 4. Thrush. Improved. Continue on nystatin swish and swallow. 5. Gastrointestinal prophylaxis. Continue on Protonix. 6. Deep vein thrombosis prophylaxis. Continue on Lovenox. 7. Continue with physical therapy. We will consult with Environmental Science Program Director for discharge planning. cc: Shey Goodrich MD
[2019-08-15] MEDS: SYNTHROID IV SCH (06:01)
--- NOTE | 2019-08-15 07:29 | GENERAL SURGERY PROGRESS NOTE ---
DATE: 08/15/2019 SUBJECTIVE: The patient seems to be doing okay, not hurting as much. OBJECTIVE: Vital Signs: The patient is currently afebrile. Her vital signs are stable. General: No acute distress. HEENT: Normocephalic, atraumatic. Pupils equal, round, reactive to light. Mucous membranes moist. Oropharynx benign. Neck: Supple. Trachea midline. Cardiovascular: Regular rate and rhythm. Lungs: Grossly clear. Abdomen: Soft, nontender, nondistended. Extremities: Moves all extremities. Neurologic: Grossly intact. Skin: No signs of jaundice. Vascular: All extremities perfused. LABORATORY DATA: Reviewed from yesterday. ASSESSMENT AND PLAN: A 69-year-old female with abdominal pain. Abdominal pain. At this time, it seems to be improving. She is tolerating her current diet. Will continue to monitor while she is in the hospital, but no immediate plans for surgical intervention. cc: Matthew Pineda MD
[2019-08-15 07:37] LABS: AGAP 11; ALB/GLOB RATIO 0.7; ALBUMIN 2.8 g/dL (3.5-5.0); ALKALINE PHOSPHATASE 58 U/L (32-104); BUN 20 mg/dL (8-22); CALCIUM 8.6 mg/dL (8.8-10.2); CHLORIDE 103 mmol/L (98-107); COSMO 278; CREATININE 0.8 mg/dL (0.5-0.9); ESTIMATED GFR > 60; GLUCOSE 126 mg/dL (70-104); GOT 21 U/L (10-30); GPT 11 U/L (10-36); POTASSIUM 4.1 mmol/L (3.5-5.1); SODIUM 137 mmol/L (136-145); TCO2 23 mmol/L (25-35); TOTAL BILIRUBIN 0.49 mg/dL (0.20-1.00); TOTAL PROTEIN 6.8 g/dL (6.3-8.3)
[2019-08-15 07:44] LABS: HEMATOCRIT 32.9 % (37.0-47.0); HEMOGLOBIN 10.9 g/dL (12.0-16.0); MCH 31.1 PG (27-31); MCHC 33.1 g/dL (33-37); MCV 93.7 FL (81-99); MPV 12.1 FL (7.4-10.4); RBC 3.51 XMIL (4.2-5.4); RDW 11.7 % (11.5-14.5); WBC 7.21 X1000 (4.8-10.8)
[2019-08-15] MEDS: ANTIVERT PO SCH ×3 (08:37→18:34)
[2019-08-15] MEDS: NORVASC PO SCH ×2 (08:37→21:26)
[2019-08-15] MEDS: MYCOSTATIN SUSP PO SCH ×4 (08:37→21:26)
[2019-08-15] MEDS: PRED FORTE 1% OPH SUSPENSION BOTH EYES SCH ×3 (08:37→21:26)
[2019-08-15] MEDS: DULCOLAX PR SCH ×2 (08:38→21:27)
[2019-08-15] MEDS: MORPHINE IV PRN ×3 (09:43→21:28)
[2019-08-15] MEDS: SODIUM CHLORIDE 0.9% INJ SCH (14:00)
[2019-08-15] MEDS: PROTONIX IV SCH (14:00)
--- NOTE | 2019-08-15 20:20 | PROGRESS NOTE ---
DATE: 08/15/2019 SUBJECTIVE: The patient is sitting up, resting comfortably. She was able to eat all of her dinner last night and she ate her breakfast this morning. She states that she feels much better. She denies having any nausea or vomiting. OBJECTIVE: Vital Signs: Temperature 99 degrees, blood pressure 121/63, heart rate 82, respirations 14, O2 saturation 98% on room air. General: This is a elderly female sitting up in bed in no acute distress. Heart: S1, S2 normal. Regular rate and rhythm. Lungs: Equal air entry bilaterally. No wheezing. No rales. Abdomen: Positive bowel sounds. Soft, nontender, nondistended. Extremities: No edema. No cyanosis. Neurologic: The patient is alert and oriented x4. LABS: Hemoglobin 10, hematocrit 32, platelets 183,000. Sodium 137, potassium 4.1, chloride 103, CO2 23, BUN 20, creatinine 0.8, glucose 126. ASSESSMENT AND PLAN: 1. Abdominal pain with nausea and vomiting. Resolved. The patient is tolerating her diet without any difficulty. She is currently receiving Reglan before meals and meclizine. 2. Pneumonia. The procalcitonin was noted to be slightly elevated. The patient is currently on day 4 of cefepime therapy. This can likely be transitioned to oral antibiotic therapy upon discharge. 3. Urinary tract infection secondary to Enterococcus faecalis. The patient is currently receiving vancomycin. Today is day 3 of therapy. 4. Hypothyroidism. Continue on Synthroid. 5. Thrush. Improved. The patient is on nystatin swish and swallow. 6. Constipation. We will add MiraLAX. Continue on Dulcolax. 7. Deep vein thrombosis prophylaxis. Continue on Lovenox. 8. Disposition. The patient has just started working with physical therapy. She is undecided whether she wants to go for inpatient rehab versus home with home health. [facility] is following. cc: Shey Goodrich MD [facility]
[2019-08-15] MEDS: MIRALAX PO SCH (21:25)
[2019-08-15] MEDS: COLACE PO SCH (21:25)
[2019-08-15] MEDS: LOVENOX SUBQ SCH (21:26)
[2019-08-15] MEDS: VANCOMYCIN 1,200 MG in NS 250 ML IV SCH (21:26)
[2019-08-16] MEDS: MAXIPIME 2 GM/NS 2 GM/100 ML IVPB IV SCH ×4 (00:21→18:29)
[2019-08-16] MEDS: CARAFATE LIQUID PO SCH ×4 (01:10→22:28)
[2019-08-16] MEDS: SYNTHROID PO SCH (06:15)
--- NOTE | 2019-08-16 07:44 | GASTROENTEROLOGY PROGRESS NOTE ---
DATE: 08/15/2019 SUBJECTIVE: Patient is sitting up in a chair in no acute distress. She has made significant improvement over the last several days. She has tolerated a diet. Family is bringing some food in from outside and she seems to be eating well. OBJECTIVE: Vital Signs: Temperature 99.2 degrees, pulse 82, respirations 14, blood pressure 121/63. General: The patient is awake and alert. No acute distress. LABORATORY: Hematology 7.21, hemoglobin 10.9, hematocrit 32.9. Chemistry, sodium 137, potassium 4.1, chloride 103, CO2 of 23, BUN 20, creatinine 0.8, glucose 126. ASSESSMENT AND PLAN: 1. Nausea, vomiting and abdominal pain have improved. She has been able to eat over the last several days. She is feeling much better. 2. Pneumonia. She is on antibiotics and respiratory management. 3. Hypothyroidism, on medication. DISCUSSION: Patient has made significant improvement over the last several days with her nausea and vomiting, no reported abdominal pain today and she has tolerated her diet. We will continue to follow. Recommend to continue meclizine, which seems to be helping. Recommend she follow up with us as an outpatient once discharged. I have discussed this case with Dr. Lynch. Dictated by NICHOLE Martin for Jean-Claude Lynch MD cc: NICHOLE Temple MD
[2019-08-16 07:49] LABS: HEMOGLOBIN 11.3 g/dL (12.0-16.0); MCH 30.9 PG (27-31); MCHC 33.2 g/dL (33-37); MCV 92.9 FL (81-99); MPV 11.2 FL (7.4-10.4); RBC 3.66 XMIL (4.2-5.4); RDW 11.5 % (11.5-14.5); WBC 6.27 X1000 (4.8-10.8)
[2019-08-16 08:11] LABS: AGAP 11; ALB/GLOB RATIO 0.8; ALBUMIN 3.1 g/dL (3.5-5.0); ALKALINE PHOSPHATASE 64 U/L (32-104); BUN 13 mg/dL (8-22); CALCIUM 8.7 mg/dL (8.8-10.2); CHLORIDE 100 mmol/L (98-107); COSMO 271; CREATININE 0.9 mg/dL (0.5-0.9); ESTIMATED GFR > 60; GLUCOSE 117 mg/dL (70-104); GOT 26 U/L (10-30); GPT 15 U/L (10-36); POTASSIUM 3.9 mmol/L (3.5-5.1); SODIUM 135 mmol/L (136-145); TCO2 24 mmol/L (25-35); TOTAL PROTEIN 7.1 g/dL (6.3-8.3)
[2019-08-16] MEDS: MIRALAX PO SCH ×2 (08:23→22:28)
[2019-08-16] MEDS: ANTIVERT PO SCH ×3 (08:24→18:29)
[2019-08-16] MEDS: PRED FORTE 1% OPH SUSPENSION BOTH EYES SCH ×3 (08:24→23:50)
[2019-08-16] MEDS: NORVASC PO SCH ×2 (08:25→22:29)
[2019-08-16] MEDS: MYCOSTATIN SUSP PO SCH ×4 (08:25→22:28)
[2019-08-16] MEDS: COLACE PO SCH ×2 (08:25→22:28)
[2019-08-16] MEDS: DULCOLAX PR SCH ×2 (08:25→22:29)
--- NOTE | 2019-08-16 10:27 | Diag Imaging Result Doc PS360 ---
CHEST-2 VIEWS - 08/16/2019 INDICATION: pneumonia COMPARISON: 08/14/2019 FINDINGS: There is stable hazy infiltrate in the right lower lobe. Heart size is normal. No pneumothorax or pleural effusion. IMPRESSION: Right lower lobe infiltrate/pneumonia. No change from prior. Electronically signed by Hang Morales 08/16/2019 10:25 AM
[2019-08-16] MEDS: MORPHINE IV PRN ×2 (10:50→16:46)
[2019-08-16] MEDS: SODIUM CHLORIDE 0.9% INJ SCH (10:50)
[2019-08-16] MEDS: PROTONIX IV SCH (10:50)
[2019-08-16] MEDS: OFIRMEV 1000 MG/ISOTONIC SOLN 1,000 MG/100 ML BOTTLE IV PRN (13:10)
--- NOTE | 2019-08-16 13:12 | GENERAL SURGERY PROGRESS NOTE ---
DATE: 08/16/2019 SUBJECTIVE: Patient seems to be doing okay. She is resting. She seems to be tolerating her diet. OBJECTIVE: Vital Signs: Patient is currently afebrile. Her vital signs are stable. General: No acute distress. HEENT: Normocephalic, atraumatic. Pupils equal, round, reactive to light. Mucous membranes moist. Oropharynx benign. Neck: Supple. Trachea midline. Cardiovascular: Regular rate and rhythm. Lungs: Grossly clear. Abdomen: Soft, nontender, nondistended. Extremities: Moves all extremities. Neurologic: Grossly intact. Skin: No signs of jaundice. Vascular: All extremities perfused. LABORATORY: White blood count is normal. Hematocrit is stable at 32. Remainder of labs reviewed. ASSESSMENT AND PLAN: A 61-year-old female with abdominal pain: Abdominal pain. At this time, it seems to be improving. From a surgical point of view, no immediate plans for surgical intervention. We will start to follow the patient peripherally. cc: Matthew Pineda MD
[2019-08-16] MEDS: VANCOMYCIN 1,200 MG in NS 250 ML IV SCH (14:26)
[2019-08-16] MEDS ORDERED: ULTRAM PO PRN (21:03)
[2019-08-16] MEDS ORDERED: TYLENOL PO PRN (21:04)
[2019-08-16] MEDS: LOVENOX SUBQ SCH (22:29)
[2019-08-16] MEDS: ULTRAM PO PRN (23:28)
[2019-08-17] MEDS: MAXIPIME 2 GM/NS 2 GM/100 ML IVPB IV SCH ×3 (01:45→17:26)
--- NOTE | 2019-08-17 03:24 | GASTROENTEROLOGY PROGRESS NOTE ---
DATE: 08/16/2019 SUBJECTIVE: Patient is awake and alert. She has family at the bedside. She has tolerated a diet. Today, she complains of some right side pain. She does have a documented bowel movement. Yesterday, she had been up in the chair for definitive time. OBJECTIVE: Vital Signs: Temperature 97.9 degrees, pulse 78, respirations 16, blood pressure 110/65. General: Patient is awake, alert, lying in her bed, in no acute distress. She does complain of some abdominal pain. Respiratory: Lung sounds essentially clear. Cardiovascular: Regular rate and rhythm. Abdomen: Abdomen is soft, nontender, nondistended. She does have some tenderness on the right side around the rib cage with exam. LABORATORY: Hematology: WBCs 6.27, hemoglobin 11.3, hematocrit 34.0, MCV 92.9. Chemistries: Sodium 135, potassium 3.9, chloride 100, CO2 of 24, BUN 13, creatinine 0.9. Glucose 117, total bilirubin 0.50, AST 26, ALT 15, alkaline phosphatase 64. ASSESSMENT AND PLAN: 1. Abdominal pain. Right now patient is complaining of some right side pain. She does have an x- ray today that showed right lower lobe infiltrate/pneumonia. No change from prior. She is on antibiotics. 2. Nausea, vomiting has improved. Patient has been tolerating her diet over the last several days. Continue proton pump inhibitor. 3. Pneumonia, on antibiotics. 4. Urinary tract infection. Patient is, again, on antibiotics. 5. Constipation. Will continue laxatives. She did have a documented bowel movement today. 6. Will continue to follow. Patient seems to be doing better. Hopefully, she can be discharged. Recommend she follow up with us as an outpatient. Would recommend she continue her PPI and continue MiraLAX. We also started Antivert for nausea and vomiting, that seems to be helping, would continue that. Further plans to be made according to her progress. I have discussed this case with Dr. Lynch. Dictated by NICHOLE Martin for Jean-Claude Lynch MD cc: NICHOLE Temple MD
[2019-08-17] MEDS: CARAFATE LIQUID PO SCH ×4 (03:37→22:53)
--- NOTE | 2019-08-17 03:47 | PROGRESS NOTE ---
DATE: 08/16/2019 INTERVAL HISTORY: No acute events overnight. SUBJECTIVE: Ms. Shaw is feeling better. She had an episode of right flank pain. It looked like a muscle pull, which got better with Tylenol that she took. We had a discussion about her clinical condition. Daughter is at bedside. They agreed with going to rehabilitation eventually. OBJECTIVE: Vital signs: Temperature 98.5 degrees, pulse 85, respiratory rate 22, blood pressure 122/70, saturating 99% on room air. On physical examination, generally not in acute distress. Oral cavity is moist. Air entry bilaterally equal. No wheeze, rhonchi or crackles. S1, S2 normal. No murmur or gallop. Abdomen is soft, nontender. No lower extremity edema. She has only mild right-sided flank tenderness which is nonspecific. She has mild bilateral lower extremity edema. She is alert and oriented x3. LABORATORY DATA: Labs suggestive of normocytic anemia. She has normal kidney function. Microbiology: No positive data. One of the urine cultures was growing enterococcus, and the repeat urine culture did not have any growth. ASSESSMENT AND PLAN: 1. Intractable nausea, vomiting and abdominal pain of unclear etiology, now resolved. Continue bowel regimen, meclizine, tramadol and acetaminophen as needed. She will need outpatient gastroenterology followup. Esophagogastroduodenoscopy performed on 08/10 had mild duodenitis without any other acute pathology. 2. Pneumonia and enterococcus urinary tract infection. Today is day 5 of intravenous antibiotic. Her chest x-ray suggests mild atelectasis versus infiltrate. She is not having any symptoms. My plan is to stop her intravenous antibiotics in the near future, in the next day or so. Repeat urine culture did not have any growth, and the intravenous cefepime should take care of enterococcus urinary tract infection as well. 3. Others: Continue Synthroid for hypothyroidism; nystatin for oral thrush, which has improved; MiraLAX or Dulcolax for constipation; Lovenox for deep venous thrombosis prophylaxis. 4. Disposition: The patient was only able to come out of bed and walk a few steps outside of bed with bed with Physical Therapy's help today. I explained to her that she may benefit from going to the rehab, and she agrees. Social Work rehab consult has been placed. cc: Narendra Alcantar MD
[2019-08-17] MEDS: SYNTHROID PO SCH (06:24)
[2019-08-17] MEDS: PRILOSEC PO SCH (06:24)
[2019-08-17] MEDS: MYCOSTATIN SUSP PO SCH ×4 (08:22→22:50)
[2019-08-17] MEDS: MIRALAX PO SCH ×2 (08:22→22:50)
[2019-08-17] MEDS: DULCOLAX PR SCH ×2 (08:23→22:52)
[2019-08-17] MEDS: NORVASC PO SCH ×2 (08:23→22:53)
[2019-08-17] MEDS: COLACE PO SCH ×2 (08:23→22:53)
[2019-08-17] MEDS: PRED FORTE 1% OPH SUSPENSION BOTH EYES SCH ×3 (08:24→22:52)
[2019-08-17] MEDS: ANTIVERT PO SCH ×3 (08:53→17:34)
[2019-08-17] MEDS: ULTRAM PO PRN (18:51)
--- NOTE | 2019-08-17 21:00 | GASTROENTEROLOGY PROGRESS NOTE ---
DATE: 08/17/2019 SUBJECTIVE: Patient is awake and alert. She currently denies abdominal pain at present time. She has been eating. She states she is trying to decide if she will go to rehab after discharge or go home. OBJECTIVE: Vital Signs: Temperature 98.3 degrees, pulse 83, respirations 16, blood pressure 108/58. General: Patient is awake, alert, no acute distress. LABORATORY: Hematology: WBC 6.27, hemoglobin 11.3, hematocrit 34.0, MCV 92.9, platelets 200,000. Chemistry: Sodium 135, potassium 3.9, chloride 100, CO2 24, BUN 13, creatinine 0.9, glucose 117, calcium 8.7, total bilirubin 0.50, AST 26, ALT 15, alkaline phosphatase 64. ASSESSMENT AND PLAN: 1. Nausea and vomiting have resolved. 2. Abdominal pain, resolved. 3. Pneumonia on antibiotics. 4. Recent constipation. Patient receiving laxatives. Continued those. 5. Her GI symptoms have improved. Recommend to continue current medications. I recommend she follow up with us as an outpatient after discharge. I believe there are considerations of her going to rehab. GI will currently sign off. Please re-consult us if needed. I have given patient contact information to call and make an appointment after discharge. I have discussed this case with Dr. Lynch. Dictated by NICHOLE Martin for Jean-Claude Lynch MD cc: NICHOLE Temple MD
--- NOTE | 2019-08-17 21:05 | PROGRESS NOTE ---
DATE: 08/17/2019 INTERVAL HISTORY: No acute events overnight. SUBJECTIVE: Ms. Shaw denies chest pain, shortness of breath, cough, nausea, vomiting, abdominal pain. She is eating better. She is having good bowel movements. We discussed about rehab and patient states that she is awaiting final placement availability. VITALS: Temperature 98.5 degrees, pulse 84, respiratory 18, blood pressure 115/61, saturating 99% on room air. PHYSICAL EXAMINATION: Lungs: Air entry bilaterally equal. No wheeze, rhonchi, crackles. Cardiovascular: S1, S2 normal. No murmur, rub, or gallop. Abdomen: Soft, nontender. No flank tenderness. Extremity: No lower extremity edema. She is alert and oriented x3. Air entry bilaterally equal. No wheeze, rhonchi, crackles. LABS: No new labs today. ASSESSMENT AND PLAN: 1. Intractable nausea, vomiting, abdominal pain of unclear etiology, now resolved. 2. Constipation. 3. Pneumonia of bilateral lower lobe and Enterococcus UTI. 4. Hypothyroidism. 5. Planning. I will stop intravenous antibiotics. I will continue her on meclizine, tramadol, and acetaminophen as needed for pain as well as nausea and vomiting. I will keep her on bowel regimen. I counseled her about continuing physical activity. She agrees. DISPOSITION: Awaiting rehab bed. Plan of care discussed with her. She is in agreement. cc: Narendra Alcantar MD
[2019-08-17] MEDS: LOVENOX SUBQ SCH (22:50)
[2019-08-18] MEDS: CARAFATE LIQUID PO SCH ×3 (03:26→13:22)
[2019-08-18] MEDS: PRILOSEC PO SCH (06:11)
[2019-08-18] MEDS: SYNTHROID PO SCH (06:11)
[2019-08-18] MEDS: MIRALAX PO SCH (08:44)
[2019-08-18] MEDS: PRED FORTE 1% OPH SUSPENSION BOTH EYES SCH ×2 (08:45→14:23)
[2019-08-18] MEDS: MYCOSTATIN SUSP PO SCH ×3 (08:45→16:34)
[2019-08-18] MEDS: DULCOLAX PR SCH (08:45)
[2019-08-18] MEDS: COLACE PO SCH (08:45)
[2019-08-18] MEDS: NORVASC PO SCH (08:46)
[2019-08-18] MEDS: ANTIVERT PO SCH ×3 (08:46→16:33)
[2019-08-18 15:44] VITALS: BP 118/72
--- NOTE | 2019-08-19 16:03 | DISCHARGE SUMMARY ---
ADMISSION DATE: 08/08/2019 DISCHARGE DATE: 08/18/2019 ADDENDUM The home care agency had questions regarding her amlodipine and gabapentin prescriptions. Apparently, the patient takes 800 mg of gabapentin at home 3 times a day as needed, and I informed to the home health agency to continue the same strength 800 mg of gabapentin 3 times a day as needed. I canceled the amlodipine prescription since she has not been hypertensive. cc: Narendra Alcantar MD MTDD
--- NOTE | 2019-08-19 16:27 | DISCHARGE SUMMARY ---
ADMISSION DATE: 08/08/2019 DISCHARGE DATE: 08/18/2019 DISCHARGE DISPOSITION: Home with home physical therapy. Initially the plan was for patient to go to rehab and arrangements were made to discharge her to rehab. However at the last moment, she changed her mind and decided to go home with home physical therapy. DISCHARGE CONDITION: Hemodynamically stable. Ms. Adhikari denies any chest pain, shortness of breath, cough, nausea, vomiting, abdominal pain. She is having regular bowel movement. She is eating well without any trouble. She has been able to come out of bed sit in the chair with some help. DISCHARGE DIAGNOSES: 1. Intractable nausea and vomiting and abdominal pain. 2. History of right-sided nephrolithiasis. 3. Hyperlipidemia. 4. Peripheral neuropathy. 5. Constipation. 6. Active tobacco abuse for which she was counseled about smoking cessation. 7. Bilateral lower lobe pneumonia. 8. Enterococcal urinary tract infection. 9. Hypothyroidism. DISCHARGE MEDICATIONS: 1. Atorvastatin 40 mg daily. 2. Prednisone ophthalmic solution 1 drop both eyes t.i.d. 3. Levothyroxine 75 mg daily. 4. Meclizine 25 mg t.i.d. 5. Dicyclomine 10 mg t.i.d. with meals. 6. Sucralfate 1 g every 6 hours. 7. Bisacodyl 10 mg per rectal b.i.d. suppositories. 8. MiraLAX 17 g b.i.d. 9. Gabapentin 600 mg t.i.d. as needed. 10. Amlodipine 5 mg daily. 11. Promethazine 25 mg every 6 hours as needed for nausea and vomiting. 12. Omeprazole 20 mg daily. 13. Acetaminophen 650 mg every 6 hours as needed for pain. VITALS AT THE TIME OF DISCHARGE: Temperature 98.3 degrees, pulse 93, respiratory 20, blood pressure 118/72, saturating 98% on room air. PHYSICAL EXAMINATION: General: Not in acute distress, oral cavity is moist. Lungs: Air entry bilaterally equal, no wheeze, rhonchi or crackles. Cardiovascular: S1, S2 normal. No murmur or gallop. Abdomen: Soft, nontender. Active bowel sounds. Extremities: No lower extremity edema. Neurologic: She was alert and oriented x 3. SIGNIFICANT LABORATORY DURING HOSPITAL ADMISSION: Hemoglobin is 11.3. Her WBC is 6.2, platelet 200,000. Her creatinine is 0.9, BUN 13, potassium 3.9. Her procalcitonin was 0.3. SIGNIFICANT MICROBIOLOGY: Repeat blood cultures on August 11 where were negative. Urine culture was growing Enterococcus faecalis which was sensitive to ampicillin and all of the antibiotics. SIGNIFICANT IMAGING DURING HOSPITAL ADMISSION: Chest x-ray on presentation did not have any evidence of acute disease. Abdominal arteriogram was essentially unremarkable, though there was a report of mild superior mesenteric artery narrowing and mild narrowing at the proximal celiac axis, though according to vascular surgeon's review, it was not significant. Abdomen and pelvis x-ray on August 12 had right pleural effusion, bibasilar atelectasis versus pneumonia, worse on the right than the left, bilateral nephrolithiasis without evidence of hydronephrosis. Head CT had chronic ischemic changes without any acute disease. Chest CT had bibasilar atelectasis versus pneumonia, COPD, and small pleural effusions. PROCEDURES DURING HOSPITAL ADMISSION: The patient underwent endoscopy on 08/10/2019 which had duodenal inflammation in the duodenal bulb and 2nd part of the duodenum for which she was recommended antacid medication. HOSPITAL COURSE SUMMARY: Ms. Shaw is a 69 year -[place] lady who was initially admitted with chief complaints of nausea, vomiting, abdominal pain of about 1 week duration. Apparently, she had flu-like illness to begin with, including fevers, chills, soreness in the throat, nausea about 1 week ago where she later on started developing vomiting and abdominal pain. In the emergency room initially, CT scan was largely unremarkable, so she was discharged home however her pain symptoms did not get better so it was decided to come back. The repeat abdominal CT scan though did have mild narrowing of superior mesenteric artery, according to vascular surgeons note and review it was not significant. In any case she was admitted for further management. She underwent EGD which had mild duodenal inflammation. She also had some constipation affecting right side of the colon. She was started on antinausea medicine, anti-vomiting medicine and intravenous pain medications as well as aggressive bowel regimen. She was also kept on antacid medication and sucralfate. With this regimen, her symptoms improved. Initially, her nausea and vomiting was uncontrolled so she was later on started on meclizine which helped with her nausea and vomiting. No clear etiology behind her nausea and vomiting could be figured out. However, she was at the time of discharge asymptomatic so we decided to discharge her on oral meclizine, as needed nausea medicine and antacid medication. DISCHARGE INSTRUCTIONS: At the time of discharge the discharge instructions were provided to patient and her son at bedside. All of their questions have been answered. I informed them about following up with Dr. Lycnh. TIME SPENT AT DISCHARGE: More than 30 minutes of time was spent discharging this patient. cc: Narendra Alcantar MD MTDD
== END 2019-08-18 17:34 | disposition home health service (06) | DRG 391 ==
LOC: ED 17:01 → 4N 08-08 00:53 → SUATTDRO 08-08 00:53 → 2N 08-11 14:47 → 4N 08-14 10:28
PROVIDERS: ATTEND Internal Medicine